=== PATIENT | female | born 1955 | race Caucasian/White ===

== ENCOUNTER 2017-06-14 13:43 | Outpatient (RCR) | payer OTHER ==
[2017-01-05 17:19] VITALS: Wt 97.5 kg
[2017-04-14 08:35] VITALS: BP 141/73
--- NOTE | 2017-04-14 08:51 | ONC Progress Note - NP.Halsey ---
Patient History Date of Service Apr 14, 2017 Reason For Visit/HPI Patient is seen today for for follow-up of her non-small cell lung cancer with features most compatible for metastatic adenocarcinoma of the lung with pulmonary origin. Patient continues to follow with Dr. Marita Iglesias in [place] and does her lab work here. Labs were reviewed with patient today. Patient reports that recent PET scan showed some lymphadenopathy in the mediastinum. She completed a biopsy which was reported to be inconclusive. She is following with Dr. Chapa at [facility] in the near future. She reports that she is on a trial study but has had no medication changes at this time. She continues on Xalkori and is tolerating it. She is having more pain in the left hip and is finding that she is having more difficulty with ambulation. Patient had similar situation with the right hip and completed radiation therapy. Disease was resolved. She did end up having a hip replacement on the right hip and is pain free at this time on the right hip. She denies any cough or congestion, shortness of breath. 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 CT was recommended by primary provider but denied by insurance so an X-ray was completed on 02-17-16 which was remarkable for a suspicious mass, Patient then had CT of the chest which showed a 2.3 x 2 x 1.6 cm mass with worrisome extensive right hilar and mediastinal adenopathy. 02-27-16: Bronchoscopy was positive for malignancy. Lymph node, subcarinal, malignant. Non-small Cell Carcinoma with fetures most compatible with metastatic adenocarcinoma of the lung/pulmonary origin. ALK immunohistochemistry: Alk IHC; Positive for ALK expression: Tumor cells show strong positive cytoplasmic staining for ALK and the specimen is classified as positive for ALK based on immunohistochemistry. Confirmation of the ALK status with alternate testing, using a different methodology is recommended (FISH analysis can be provided). 03/04/16: PET/CT Right lower lobe hypermetabolic module compatible with malignancy. Multiple hypermetabolic lymph nodes throughout the mediastinum, right hilum, and bilateral lowre neck cojmpatible with metastatic disease. 03/11/16: MRI Brain: enhancement measuring 5mm at the pontomedullary junction with mild magnetic susceptibility on the gradient sequence. 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 However a small metastatic lesion would be within the differential. Short term interval follow up in 4-6 weeks would be recommended. No other foci of metastatic disease within the remaining brain parenchyma. 03/24/16: Education regarding treatment with Xalkori completed, consent signed. 03/27/16: Xalkori started 04/06/16 MRI lumbar spine suspicious for solitary metastatic lesio to L2- patient denies any pain in the area. 04/13/16 Patient on treatment with Xalkori x 2 weeks and is seen for a 2 week follow up to review labs- which were WNL 04/20/16 Patient presents with SOB, CXR shows increased interstitial marking of the lungs particularly on the right when complared to CT form February 19, 2016. Differential is instertial pneumonia viral or atypical. Xalkori literature reviewed, URI symtoms and infection is increased and generally occur 2 months post initiation of treatment Recommendation is to discontinue if grade 3/4. AST-38 and ALT-73 are also elevated. Again Xalkori can increase the enzymes and drug will be discontinued if increased to > 3 times baseline or total bilirubin is > 1.5 times normal limit. Patient also has elevated WBC in her urine at 38 with symptoms of increased nocturia and dark colored urine. Patient placed on medrol dose elaina, levaquin x 10 days - Symptoms resolved. Patient reviewed CT from 05/25/[address] Iglesias. The previously noted spiculated mass in the anterior right lobe is markedly decreased in size now measuring 7 x 5 x 6 mm as opposed to 2.3 x 2 x 1.6 cm. There has also been resolution of the hilar mediastinal adenopathy with no pathologic appearing adenopathy. There was interval development of small pericardial infusion. PET/CT completed on 08/11/2016 had findings consistent with treatment response. Prior FDG avid bilateral supraclavicular, mediastinal, right hilar lymph nodes as well as FDG avid right lower lobe mass have all resolved. Enlarging sclerotic bone lesion within L2 vertebral body and left ischium are not FDG G avid and likely treated osseous metastatic disease. New tiny sclerotic lesion in the right superior acetabulum is not FDG avid. MRI on 09/09/2016 shows interval resolution of metastatic disease at L2 with findings likely representing previous radiation therapy to the upper lumbar spine. Patient has not received radiation treatment prior to this study. . Patient having pain in L2 area and right acetabulum. Patient started radiation therapy to the right acetabulum and has completed 20 fractions to a therapeutic dose of 4000 cGy. Pain was sightly improved. Patient is also completing L2-L3 spine radiation therapy with completion date of 09/27/2016. Patient will not receive Xgeva at this time Total hip arthroplasty completed in February 2017. Patient has improved ability for ambulation and no pain. CT chest abdomen and pelvis completed on 03/08/2017 shows stable 8 mm right lower lobe nodule, progression of bony metastatic disease in the pelvis, involving the bilateral iliac bones and left acetabulum. There are moderate degenerative changes in the right at L4 and 5 but these are similar to previous PET CT scan. No metastatic disease in the chest abdomen and pelvis. Nuclear med bone scan completed on 03/08/2017 shows vaguely increased activity of the right aspect of L4 which is increased from previous bone scan. There is new right total hip arthroplasty, patchy right acetabulum and mid femur is likely postoperative although residual metastatic disease is possible. There is a new area of uptake in the right acetabulum adjacent to the SI joint and patchy activity in the left iliac bone is increased compatible with bony metastatic disease. PET/CT completed in [place] shows lymphadenopathy in the mediastinum. Patient had biopsy of both pulmonary lymph nodes which were inconclusive. This is reported by patient. Patient is scheduled to follow with pulmonology at [facility] in the near future. Increasing left bone pain with more difficulty with ambulation. Recent CT scan and PET scan both conclusive for increased activity in the left hip with patchy sclerosis lysis disease, and patchy activity in the left iliac bone which was increased from previous. Patient should have an MRI for treatment planning with radiation. Medical History Family History: Bone cancer MOTHER, FH: breast cancer MOTHER, FH: melanoma FATHER Myasthenia gravis FATHER Psychosocial History Social History Patient is and has 1 adult daughter. 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 Bello clinic Prov:JOYCE MEDLEY STATISTICIAN-BC, ONC 03/24/16 Reported Medications Hydrochlorothiazide (HYDROCHLOROTHIAZIDE) 25 Mg Tablet, 1 TAB PO QDAY, TAB 08/18/16 Losartan Potassium (LOSARTAN POTASSIUM) 50 Mg Tablet, 50 MG PO QDAY for Blood Pressure 07/20/16 Sitagliptin Phos/Metformin Hcl (JANUMET XR 100-1,000 MG TABLET) 1 Each Tbmp.24hr , 1 EACH PO QDAY 07/20/16 Allergies: Uncoded Allergies: CONTRAST DYE (Allergy, Intermediate, VOMITING/FEVER , 12/24/16) Review of System/Physical Exam Review of Systems All Systems Reviewed/Normal: Yes, Except as Noted Musculoskeletal: Positive for Joint Pain (left hip which is increasing), Positive for Bone Pain (left hip pain which is increasing and causing more difficulty with ambulation. Patient feels that she is unable to exercise because of the increased pain) Physical Exam Vital Signs Temperature: 96.4 Pulse: 63 BP Systolic: 141 BP Diastolic: 73 Respiratory Rate: 14 O2 SAT: 92 O2 Delivery: Height (inches) 63.00 Weight lb: 215 Weight oz: Weight Kg (V[place]): 97.725153 Pain: 2 ECOG Score: 1 (Pain related causing fatigue and inability to be active) General: Stable, Well Developed, Well Nourished, Not In Acute Distress Neck: Supple Lungs: Clear to Auscultation Heart: Regular Rate, Regular Rhythm, No Gallops Abdomen: Soft and Nontender, No Hepatosplenomegaly, No Masses, Other Extremities: No Cyanosis (bowel sounds are active), No Clubbing, Other (noted limping with ambulation and difficulty getting out of the chair from sit to stand.) Psychiatric: Mood appears normal, Affect appears normal Skin: No Skin Rashes, No Bruising Diagnostic Studies Diagnostic Studies Laboratory Item Value Date Time White Blood Count 4.2 k/uL L 04/14/17 0830 Red Blood Count 4.18 M/uL 04/14/1730 Hemoglobin 12.0 g/dL 04/14/17829 Hematocrit 34.9 % 04/14/17829 Mean Corpuscular Volume 83.4 fL 04/14/17829 Mean Corpuscular Hemoglobin 28.8 pg 04/14/17829 Mean Corpuscular Hemoglobin Concent 34.5 g/dL 04/14/17829 Red Cell Distribution Width 14.9 % H 04/14/17 08 Platelet Count 358 K/uL 04/14/17829 Mean Platelet Volume 6.4 fL L 04/14/17 0830 Lymphocytes (%) (Auto) 15.5 % L 04/14/17829 Neutrophils # (Auto) 2.9 K/uL 04/14/17829 Whole Blood Glucose 147 mg/DL H 01/07/17 0754 Random Glucose 132 mg/dl H 04/14/1730 Alkaline Phosphatase 164 U/L H 04/14/1730 Albumin 3.1 g/dl L 04/14/17829 Assessment and Plan Assessment & Plan 1) Stage 4 adenocarcinoma of lung with possible brain metastasis is ALK IHC positive. Xalkori 250mg by mouth bid started on 03-27-16 and continues. Patient experienced nausea but controlled with compazine bid. Patient had CT chest, abdomen and pelvis on 05-25-[address] Iglesias in [facility] to review. Patient had significant improvement of previous disease. PET/ CT completed on 08/11/2016 is worrisome for increased osseous metastatic disease and findings of bilateral supraclavicular, mediastinal, right hilar lymph nodes consistent with treatment response. Patient completed radiation radiation therapy to the right acetabulum completed 20 fractions to a therapeutic dose of 4000 cGy completed L2-L3 spine on 09/27/2016 of 6 total doses. Patient continued to have pain and completed a right total hip arthroplasty. Pain is resolved. . Patient had repeat CT scan chest abdomen pelvis and bone scan done on 03/08/2017 showing increased metastatic bone disease in the left iliac bone showing patchy activity in the left iliac bone which was increased from previous studies. In review of nuclear med bone scan on 03/08/2017, patchy sclerosis and lysis of the left iliac bone anteriorly and laterally are noted. Patient has not had an MRI of the hip for further evaluation and could benefit from radiation therapy. She continues on Xalkori at this time. She is scheduled to follow with pulmonology in the near future. Recent biopsy of bilateral mediastinal lymph nodes found on PET CT were inconclusive.CBC and CMP reviewed today are essentially unremarkable Patient has not currently been on Xgeva for her bone metastasis due to completion of radiation therapy and recent hip surgery and possible need for radiation of the left hip for pain management. We will continue to monitor at this time. 2) Persistent nausea thought to be from Xalkori. Compazine provides relief. Patient will continue on Compazine twice a day. 3) Possible brain metastasis. MRI of the brain in March suggestive of disease with recommendation to repeat in 4-6 weeks. Repeat MRI remain stable from previous. It is not evident of brain metastasis at this time. Patient may benefit from repeat MRI in 4-6 months for further evaluation depending on disease status at that time. This is pending at this time- PET/CT scan be completed today and may show indication of her status. 4) Elevated cholesterol: Patient reports that she has discontinued her cholesterol medicine. Cholesterol labs reviewed today and remain relatively able. 5) Patient has a history of diabetes which is well managed through primary care. This remained stable, A1c was 6.1. She will continue to follow with primary care 6) Hypertension: Managed by primary care. We will continue to monitor 7.) Pain in the right acetabulum and L-spine: Patient is status post radiation therapy to these areas and has had significant improvement. Pain is improved post total hip arthroplasty. Patient has not been started on Xgeva 8.) Anxiety and depression: Will start patient on Cymbalta 30 mg daily 7 days and then increased to 60 mg daily with hopes that this will help with her anxiety, depression, and history of neuropathy. Patient continues on Cymbalta at this time and reports feeling good. 9.) Increasing pain in the left iliac crest. Disease identified when studies of CT and nuclear med bone scan from 03/08/2017 are reviewed. Both studies indicate patchy activity in the left iliac bone which is increased from prior studies and compatible with bone metastasis disease. Patient has not had an MRI for further evaluation and is interested in radiation therapy for pain management. She would like to do this before her pain increases and she is unable to ambulate which is what happened with the right hip. I will order an MRI and see patient in follow up for review and refer for radiation therapy if indicated. Plan: Continue Xalkori until discontinued by Dr. Iglesias MRI of the left hip, it left iliac crest for further evaluation of bone metastasis found on previous CT scan and increased pain causing difficulty with ambulation. Plan on referral for radiation therapy. Consider Xgeva for bone maintenance. Patient will continue on vitamin D 2000 units daily. Return in one month with CBC, CMP. And follow-up with myself. Pulmonology follow-up as scheduled. I personally spent a total of 35 minutes. Of that 35 minutes was counseling/ coordination of patient's care. See my note above for details. Copies to: MARITA IGLESIAS MD, NANCY J STATISTICIAN-BC, ONC Apr 14, 2017 08:51
[2017-05-06 09:29] LABS: PLATELET COUNT, AUTOMATED 397 K/uL (150-450)
[2017-05-13 09:08] LABS: PLATELET COUNT, AUTOMATED 375 K/uL (150-450)
[2017-05-13 09:18] VITALS: BP 128/77
[2017-05-20 08:56] LABS: PLATELET COUNT, AUTOMATED 346 K/uL (150-450)
[2017-05-20 09:14] VITALS: BP 131/70
--- NOTE | 2017-05-20 10:18 | ONC Progress Note - NP.Halsey ---
Patient History Date of Service May 20, 2017 Reason For Visit/HPI Patient is seen today for for follow-up of her non-small cell lung cancer with features most compatible for metastatic adenocarcinoma of the lung with pulmonary origin. Patient continues to follow with Dr. Marita Iglesias in [place] and does her lab work here. Labs were reviewed with patient today. Patient continues on radiation therapy for metastatic disease to the left hip. She reports that her pain has decreased with treatment and she has no skin reaction in the treatment field. She is able to ride a stationary bike for 45 minutes a day which previously she could not do. She continues on oral chemotherapy with Alecensa and denies any side effects. She no longer requires Compazine for nausea.. Problem List (1) Disease of bone and joint (2) Diabetes 1.5, managed as type 1 (3) Hypertension (4) Stage IV adenocarcinoma of lung Oncology History Patient presented with a one year history of a non specific cough. CT was recommended by primary provider but denied by insurance so an X-ray was completed on 02-17-16 which was remarkable for a suspicious mass, Patient then had CT of the chest which showed a 2.3 x 2 x 1.6 cm mass with worrisome extensive right hilar and mediastinal adenopathy. 02-27-16: Bronchoscopy was positive for malignancy. Lymph node, subcarinal, malignant. Non-small Cell Carcinoma with fetures most compatible with metastatic adenocarcinoma of the lung/pulmonary origin. ALK immunohistochemistry: Alk IHC; Positive for ALK expression: Tumor cells show strong positive cytoplasmic staining for ALK and the specimen is classified as positive for ALK based on immunohistochemistry. Confirmation of the ALK status with alternate testing, using a different methodology is recommended (FISH analysis can be provided). 03/04/16: PET/CT Right lower lobe hypermetabolic module compatible with malignancy. Multiple hypermetabolic lymph nodes throughout the mediastinum, right hilum, and bilateral lowre neck cojmpatible with metastatic disease. 03/11/16: MRI Brain: enhancement measuring 5mm at the pontomedullary junction with mild magnetic susceptibility on the gradient sequence. 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 However a small metastatic lesion would be within the differential. Short term interval follow up in 4-6 weeks would be recommended. No other foci of metastatic disease within the remaining brain parenchyma. 03/24/16: Education regarding treatment with Xalkori completed, consent signed. 03/27/16: Xalkori started 04/06/16 MRI lumbar spine suspicious for solitary metastatic lesio to L2- patient denies any pain in the area. 04/13/16 Patient on treatment with Xalkori x 2 weeks and is seen for a 2 week follow up to review labs- which were WNL 04/20/16 Patient presents with SOB, CXR shows increased interstitial marking of the lungs particularly on the right when complared to CT form February 19, 2016. Differential is instertial pneumonia viral or atypical. Xalkori literature reviewed, URI symtoms and infection is increased and generally occur 2 months post initiation of treatment Recommendation is to discontinue if grade 3/4. AST-38 and ALT-73 are also elevated. Again Xalkori can increase the enzymes and drug will be discontinued if increased to > 3 times baseline or total bilirubin is > 1.5 times normal limit. Patient also has elevated WBC in her urine at 38 with symptoms of increased nocturia and dark colored urine. Patient placed on medrol dose elaina, levaquin x 10 days - Symptoms resolved. Patient reviewed CT from 05/25/[address] Iglesias. The previously noted spiculated mass in the anterior right lobe is markedly decreased in size now measuring 7 x 5 x 6 mm as opposed to 2.3 x 2 x 1.6 cm. There has also been resolution of the hilar mediastinal adenopathy with no pathologic appearing adenopathy. There was interval development of small pericardial infusion. PET/CT completed on 08/11/2016 had findings consistent with treatment response. Prior FDG avid bilateral supraclavicular, mediastinal, right hilar lymph nodes as well as FDG avid right lower lobe mass have all resolved. Enlarging sclerotic bone lesion within L2 vertebral body and left ischium are not FDG G avid and likely treated osseous metastatic disease. New tiny sclerotic lesion in the right superior acetabulum is not FDG avid. MRI on 09/09/2016 shows interval resolution of metastatic disease at L2 with findings likely representing previous radiation therapy to the upper lumbar spine. Patient has not received radiation treatment prior to this study. . Patient having pain in L2 area and right acetabulum. Patient started radiation therapy to the right acetabulum and has completed 20 fractions to a therapeutic dose of 4000 cGy. Pain was sightly improved. Patient is also completing L2-L3 spine radiation therapy with completion date of 09/27/2016. Patient will not receive Xgeva at this time Total hip arthroplasty completed in February 2017. Patient has improved ability for ambulation and no pain. CT chest abdomen and pelvis completed on 03/08/2017 shows stable 8 mm right lower lobe nodule, progression of bony metastatic disease in the pelvis, involving the bilateral iliac bones and left acetabulum. There are moderate degenerative changes in the right at L4 and 5 but these are similar to previous PET CT scan. No metastatic disease in the chest abdomen and pelvis. Nuclear med bone scan completed on 03/08/2017 shows vaguely increased activity of the right aspect of L4 which is increased from previous bone scan. There is new right total hip arthroplasty, patchy right acetabulum and mid femur is likely postoperative although residual metastatic disease is possible. There is a new area of uptake in the right acetabulum adjacent to the SI joint and patchy activity in the left iliac bone is increased compatible with bony metastatic disease. PET/CT completed in [place] shows lymphadenopathy in the mediastinum. Patient had biopsy of both pulmonary lymph nodes which were inconclusive. This is reported by patient. Patient is scheduled to follow with pulmonology at [facility] in the near future. Increasing left bone pain with more difficulty with ambulation. Recent CT scan and PET scan both conclusive for increased activity in the left hip with patchy sclerosis lysis disease, and patchy activity in the left iliac bone which was increased from previous. Patient had a MRI for treatment planning with radiation. Patient has experienced decreased pain with radiation therapy to the left hip.05-20-17 Medical History Family History: Bone cancer MOTHER, FH: breast cancer MOTHER, FH: melanoma FATHER Myasthenia gravis FATHER Psychosocial History Social History Patient is and has 1 adult daughter. 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 Alcohol History She denies abuse Smoking History: No Smoking Status: Never Smoker Exposure to Second Hand Smoke?: Yes Medications and Allergies Active Scripts Duloxetine Hcl (CYMBALTA) 60 Mg Capsule., 60 MG PO QDAY for 30 Days, #30 CAP Prov:JOYCE MEDLEY BUNDLES HANGER-BC, ONC 05/05/17 Alectinib Hydrochloride (Alecensa) 150 Mg Capsule, 600 MG PO BID, #240 TAB Prov:JOYCE MEDLEY [employer]UNDLES HANGER-BC, ONC 05/05/17 Prochlorperazine Maleate (Compazine) 10 Mg Tablet, 10 MG PO 1-3XD for nasea, # 60 TAB 3 Refills Prov:IRVIN MEDLEYEARNESTINE Cantu BUNDLES HANGER-BC, ONC 09/10/16 Reported Medications Cholecalciferol (Vitamin D3) (VITAMIN D3) 1,000 Unit Tablet, 1000 UNIT PO DAILY , TAB 04/28/17 Hydrochlorothiazide (HYDROCHLOROTHIAZIDE) 25 Mg Tablet, 1 TAB PO QDAY, TAB 08/18/16 Losartan Potassium (LOSARTAN POTASSIUM) 50 Mg Tablet, 50 MG PO QDAY for Blood Pressure 07/20/16 Sitagliptin Phos/Metformin Hcl (JANUMET XR 100-1,000 MG TABLET) 1 Each Tbmp.24hr , 1 EACH PO QDAY 07/20/16 Allergies: Uncoded Allergies: CONTRAST DYE (Allergy, Intermediate, VOMITING/FEVER , 12/24/16) Review of System/Physical Exam Review of Systems All Systems Reviewed/Normal: Yes, Except as Noted Hematologic: Positive for Fatigue Musculoskeletal: Positive for Bone Pain (left hip which is reported to be improved) Physical Exam Vital Signs Temperature: 97.1 Pulse: 64 BP Systolic: 131 BP Diastolic: 70 Respiratory Rate: 16 O2 SAT: 92 O2 Delivery: Height (inches) 63.00 Weight lb: 215 Weight oz: Weight Kg (Villa): [phone] Pain: 3 ECOG Score: 1 General: Stable, Well Developed, Well Nourished, Not In Acute Distress HEENT: No Trauma, No Icterus, No Oral Thrush Neck: Supple Lungs: Clear to Auscultation Heart: Regular Rate, Regular Rhythm, No Gallops Abdomen: Soft and Nontender, No Hepatosplenomegaly, Other (bowel sounds are active) Extremities: No Cyanosis, No Clubbing, No Edema Lymphadenopathy: No Cervical Psychiatric: Mood appears normal, Affect appears normal Skin: No Skin Rashes, No Bruising Diagnostic Studies Diagnostic Studies Laboratory Laboratory Tests 05/20/17 08:46 Laboratory Tests 05/06/17 09:13: Peripheral Blood Smear No 05/20/17 08:46: White Blood Count 4.7, Red Blood Count 4.15, Hemoglobin 11.9, Hematocrit 35.0, Mean Corpuscular Volume 84.4, Mean Corpuscular Hemoglobin 28.6, Mean Corpuscular Hemoglobin Concent 33.9, Red Cell Distribution Width 16.1, Platelet Count 346, Mean Platelet Volume 6.9, Neutrophils (%) (Auto) 82.3, Lymphocytes (% ) (Auto) 9.8, Monocytes (%) (Auto) 5.8, Eosinophils (%) (Auto) 0.9, Basophils (% ) (Auto) 1.2, Nucleated RBC Relative Count (auto) 0.0, Neutrophils # (Auto) 3.9 , Lymphocytes # (Auto) 0.5, Monocytes # (Auto) 0.3, Eosinophils # (Auto) 0.0, Basophils # (Auto) 0.1, Nucleated RBC Absolute Count (auto) 0.00, Sodium Level 137, Potassium Level 3.2, Chloride Level 100, Carbon Dioxide Level 28, Blood Urea Nitrogen 12, Creatinine 0.90, Glomerular Filtration Rate Calc > 60.0, Random Glucose 171, Calcium Level 8.5, Total Bilirubin 1.0, Aspartate Amino Transf (AST/SGOT) 23, Alanine Aminotransferase (ALT/SGPT) 30, Alkaline Phosphatase 169, Total Creatine Kinase 27, Total Protein 6.0, Albumin 3.2 Assessment and Plan Assessment & Plan 1) Stage 4 adenocarcinoma of lung with possible brain metastasis is ALK IHC positive. Xalkori 250mg by mouth bid started on 03-27-16 and continues. Patient experienced nausea but controlled with compazine bid. Patient had CT chest, abdomen and pelvis on 05-25-[address] Iglesias in [facility] to review. Patient had significant improvement of previous disease. PET/ CT completed on 08/11/2016 is worrisome for increased osseous metastatic disease and findings of bilateral supraclavicular, mediastinal, right hilar lymph nodes consistent with treatment response. Patient completed radiation radiation therapy to the right acetabulum completed 20 fractions to a therapeutic dose of 4000 cGy completed L2-L3 spine on 09/27/2016 of 6 total doses. Patient continued to have pain and completed a right total hip arthroplasty. Pain is resolved. . Patient had repeat CT scan chest abdomen pelvis and bone scan done on 03/08/2017 showing increased metastatic bone disease in the left iliac bone showing patchy activity in the left iliac bone which was increased from previous studies. In review of nuclear med bone scan on 03/08/2017, patchy sclerosis and lysis of the left iliac bone anteriorly and laterally are noted. Patient is currently receiving radiation therapy to the left hip with improvement of pain and mobility. Xalkori has been discontinued and patient is currently on Alecensa with good toleration. Patient will follow with Dr. Iglesias in June. I plan on repeating labs weekly for 2 more weeks and then patient will have monthly labs. See her in June for follow-up. Patient has not currently been on Xgeva for her bone metastasis due to completion of radiation therapy and recent hip surgery and possible need for radiation of the left hip for pain management. We will continue to monitor at this time. 2) Increasing pain in the left iliac crest. Disease identified when studies of CT and nuclear med bone scan from 03/08/2017 are reviewed. Both studies indicate patchy activity in the left iliac bone which is increased from prior studies and compatible with bone metastasis disease. Patient has not had an MRI for further evaluation and is interested in radiation therapy for pain management. She would like to do this before her pain increases and she is unable to ambulate which is what happened with the right hip. MRI completed for treatment planning with radiation therapy. Patient started radiation therapy to the left hip on 05/05/2017. 3) Possible brain metastasis. MRI of the brain in March suggestive of disease with recommendation to repeat in 4-6 weeks. Repeat MRI remain stable from previous. It is not evident of brain metastasis at this time. Patient may benefit from repeat MRI in 4-6 months for further evaluation depending on disease status at that time. This is pending at this time- PET/CT scan be completed today and may show indication of her status. 4) Elevated cholesterol: Patient reports that she has discontinued her cholesterol medicine. Cholesterol labs reviewed today and remain relatively able. 5) Patient has a history of diabetes which is well managed through primary care. This remained stable, A1c was 6.1. She will continue to follow with primary care 6) Hypertension: Managed by primary care. We will continue to monitor. Patient is currently on hydrochlorothiazide and has a decreased potassium level. We will continue to monitor and start potassium if necessary. 7.) Pain in the right acetabulum and L-spine: Patient is status post radiation therapy to these areas and has had significant improvement. Pain is improved post total hip arthroplasty. Patient has not been started on Xgeva 8.) Anxiety and depression: Will start patient on Cymbalta 30 mg daily 7 days and then increased to 60 mg daily with hopes that this will help with her anxiety, depression, and history of neuropathy. Patient continues on Cymbalta at this time and reports feeling good. Plan: Continue on Alecensa daily Continue weekly labs 2 more weeks[address] Follow with Dr. Iglesias in June as scheduled. Follow with myself with labs prior in June. Complete radiation therapy to the left hip. Consider Xgeva for bone maintenance. Patient will continue on vitamin D 2000 units daily. I personally spent a total of 25 minutes [id number] with patient reviewing labs, counseling, and coordination of care. See my note above for details. Copies to: MARITA IGLESIAS MD, NANCY J BUNDLES HANGER-BC, ONC May 20, 2017 10:18
[2017-05-27 08:52] LABS: PLATELET COUNT, AUTOMATED 281 K/uL (150-450)
[2017-05-27 09:36] VITALS: BP 129/67
[2017-06-03 09:07] VITALS: BP 147/74
[2017-06-03 09:12] LABS: PLATELET COUNT, AUTOMATED 352 K/uL (150-450)
[~2017-06-14 13:43] MED LIST: ALEC150C PO; ASPI-757 PO; ASPI81TA94 PO; ATR80PT PO; CELE-1 PO; CHOL10005 PO; CRIZ250C PO; DIA5 PO; DULO30CA35 PO; DULO60CA56 PO; EZET10TA41 PO; GABA-547 PO; HYDR-2966 PO; HYDR-389 PO; HYDR12.561 PO; LEVO750T44 PO; LOSA-51 PO; LOSA50TA72 PO; METF-420 PO; METH4TAB66 PO; OXYC-823 PO; OXYC5TAB38 PO; PRED-1 PO; PROC10TA4 PO; RIV10 PO; SITA1TBM7 PO
[2017-06-14 13:49] VITALS: BP 127/81
[2017-06-14 13:57] LABS: PLATELET COUNT, AUTOMATED 402 K/uL (150-450)
== END 2017-07-12 ==
LOC: SPU 13:43
PROVIDERS: ATTEND Internal Medicine Medical Oncology
DX: C34.91 Malignant neoplasm of unspecified part of right bronchus or lung (principal); C79.51 Secondary malignant neoplasm of bone; Z92.3 Personal history of irradiation; R11.0 Nausea; E78.00 Pure hypercholesterolemia, unspecified; I10 Essential (primary) hypertension; M54.89 Other dorsalgia; F32.9 Major depressive disorder, single episode, unspecified; E10.9 Type 1 diabetes mellitus without complications; Z96.641 Presence of right artificial hip joint; Z79.82 Long term (current) use of aspirin; Z79.899 Other long term (current) drug therapy; R53.83 Other fatigue
CPT/HCPCS: 36415; 77412; 81001; 82040; 82247; 82310; 82374; 82435; 82550; 82565; 82947; 83615; 84075; 84132; 84155; 84295; 84450; 84460; 84520; 85025; 99212

== ENCOUNTER 2017-06-14 13:44 | Outpatient (RCR) | payer OTHER ==
[2017-01-05 17:19] VITALS: BMI 38.1
[2017-04-14 08:47] LABS: PLATELET COUNT, AUTOMATED 358 K/uL (150-450)
--- NOTE | 2017-04-30 06:25 | TOBIN CONSULT ---
EVENT DATE: April 26, 2017 REASON FOR REEVALUATION Patient is referred for radiation therapy for symptomatic bone pain related to lung cancer progression in the left acetabulum and left hemipelvis, significant pain with standing. STAGE IV ONCOLOGY HISTORY 1. Patient diagnosed with ALK positive adenocarcinoma of the lung January,, presenting with bilateral supraclavicular fossa lymphadenopathy, mediastinal and right hilar lymphadenopathy. Spiculated right lower lobe mass measuring 2.2 x 1.9 cm. 2. Patient started on Xalkori with significant therapeutic response. 3. Radiographic evidence of tumor progression with bony sclerosis at L2. 4. Sep, 2016, patient treated with focal radiation therapy. Sclerosis also noted at that time in the right acetabulum with concurrent radiotherapy delivering 4080 Centigrade in 21 fractions concurrently with both marie. 5, Recent identification of recurrent PET CT avid lymphadenopathy in the chest with radiographic evidence of tumor progression in the left hemipelvis confirmed by MRI scan as well as MRI scan. PET CT scan was requested by Dr. Skaggs and obtained at [place] on March 18, 2017. That study is notable for new lymphadenopathy, left posterior cervical chain, supraclavicular space on the left and right side. Right pulmonary nodule, slight increase in size. Metabolic activity also noted in the right hilar and paraesophageal lymph nodes. Finally, tumor metabolic activity was seen in the left iliac crest, which was new compared to prior studies in 2016 and 2017. 6. MRI confirmation of fairly extensive tumor remodeling of the left acetabulum and left iliac bone. Left hip MRI scan was obtained on April 20, 2017. There is fluid collection measuring 8.0 x 2.4 x 2.4 cm along the right total hip area related to prior WENDY surgery. Final pathology was benign for any radiation changes or cancer in the right hip. That hip developed avascular necrosis. The MRI scan revealed metastatic disease involving the right superior and inferior pubic ramus bone along that left acetabulum. Tumor was also extending into the left iliac bone as well as the inferior pubic ramus on the left and the anterior and posterior acetabular columns. Moderate edema in the adjacent iliac is gluteal musculature. Mixed sclerotic reaction. INTERVAL HISTORY Patient is well known to me. She is a pleasant 61-year-old female who was diagnosed last year with non-small cell lung carcinoma, which was ALK positive. Tumor has been reasonably well controlled with Xalkori with initial CR. She had isolated bone progression, which was treated successfully with radiotherapy last fall to L2 and the right supra-acetabular area. Recent radiographic studies show improvement at L2 with no metabolic activity on recent PET CT scan at that location. Patient developed pain in the left hemipelvis with standing in the last two months. She states that started after her right total hip replacement for unrelated avascular necrosis. She recovered nicely from the surgery with no complications. Pain is not present with sitting, but is certainly present immediately with standing and walking. She is noticing pain with sleeping. She tries not to take any pain medications when possible. She does have oxycodone at home if severe pain. Pain can range from 2 to a 7 on a scale of 1-10. Mild weight loss, stable respiratory status. Denies any headaches. Denies any back pain. No motor weakness. No radicular component of pain. The patient has seen Dr. Marita Skaggs since her last appointment here as well as Dr. Funez at the [facility]. She was referred for radiotherapy considerations at this time. There will be a change in her systemic therapy as well within the next 30-90 days. Outside medical oncology records have been requested. Patient was seen with her for film review this morning. Overall, patient's clinical functional status has remained fairly high. She has not experienced any nausea at this time. She does inform me that she may have to travel to [place] within a few days or weeks due to an illness in a relative. CURRENT MEDICATIONS 1. Xalkori (crizotinib) 250 mg daily. 2. Janumet 100/1000 mg daily. 3. Losartan 50 mg daily. 4. Hydrochlorothiazide 25 mg daily. 5. Compazine 10 mg daily. 6. Vitamin D. PAST MEDICAL HISTORY 1. Non-small cell lung carcinoma with lymph node and bone metastasis. 2. Type 2 diabetes. 3. Hypertension. 4. Obesity. 5. Pulmonary hypertension. PAST SURGICAL HISTORY Right hip replacement January 04, 2017. ALLERGIES None. 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 She is . Nonsmoker. Denies alcohol. REVIEW OF SYSTEMS Comprehensive review of systems negative with the exception of bone pain with standing in left hemipelvis. Weight loss of approximately 40 pounds the last 6 months, which she accounts to improved diet. Oxygen at 1 liter at night. Intermittent cough. PHYSICAL EXAMINATION GENERAL: Pleasant 61-year-old female with [id number] build. Pleasant 61- year-old female in no acute distress. VITALS: BP 123/65, pulse 61, O2 sat 92% on room air, respirations 16. HEENT: No regional lymphadenopathy detected with exception of some fullness in the supraclavicular fossa bilaterally. No axillary lymphadenopathy. LUNGS: Clear to auscultation bilaterally. HEART: Regular, no audible murmur. ABDOMEN: Soft, no gross organomegaly. EXTREMITIES: Motor strength was equal in the upper and lower extremities bilaterally. IMPRESSION This is very nice 61-year-old lady who is approximately 14 months remote from diagnosis of stage IV ALK-positive adenocarcinoma of the lung. Patient presented with mediastinal and bone metastasis essentially. Previously responded well to focal radiotherapy to the right acetabulum and L2. I did not treat the right femur, and I would say the right side avascular necrosis was incidental. No cancer on the final pathology at that location. The patient presents at this time with recent evidence of progression on PET CT scan with recurrent activity in the mediastinal supraclavicular fossa lymph nodes. There also is progression in the left hemipelvis confirmed by PET CT as well as an MRI scan. The latter was obtained at [facility] and reviewed with the patient and her today on the screen. There is significant osteolytic involvement of the left acetabulum as well as the inferior pubic ramus and the left iliac wing. Patient is symptomatic with immediate pain with standing and also pain at night, which is characteristic of malignancy at this location. My recommendation would be to proceed immediately with focal multifield radiotherapy to this location. I plan to deliver 40 bautista and 20 fractions with a 3 or 4 field treatment technique. Previous marie will be reviewed prior to radiation planning. Due to her size, she may develop skin reaction in the groin , and we will attempt to avoid this by listing this as a potential avoidant structure, and also using high energy 18 MV photons. Targeting simulation has been initiated, and treatments will start within approximately 7 days. All questions were answered to the patient's satisfaction. I would estimate 80% chance of partial relief and 60% chance of complete bone pain relief with treatment program. The goal is to prevent pathologic fracture down the road, particularly since she has osteolytic process going through the acetabulum. Signed consent was obtained for treatment, recognizing potential acute late side effects, therapeutic alternatives, including no therapy. Consultation took approximately 90 minutes today. HANK
[2017-05-05 08:52] VITALS: BP 126/69
--- NOTE | 2017-05-05 12:38 | ONC Progress Note - NP.Halsey ---
Patient History Date of Service May 05, 2017 Reason For Visit/HPI Patient is seen in the clinic today for education prior to starting oral therapy with Alecensa. She has not discontinued the Xalkori and was instructed to stop it now. She recently followed with Dr. Chapa at [facility] and Dr. Marita Iglesias to discuss her plan of care for her non-small cell lung cancer with ALK translocation originally diagnosed on 02-27-16 with sub carinal lymph node biopsy. ALD status was confirmed with FISH and ICH. She has completed approximately one year of Xalkori and has developed disease progression. She recently presented with increased pain in the left hip and had an MRI to confirm disease progression in the area. She started radiation therapy to the left hip yesterday and will complete on 05-30-17 if she is on schedule. She is following with Dr. Christiano Neal, radiation oncologist. Patient reports that her pain is slightly improved today. She continues to take no oral pain medication. She occasionally will take a Tylenol. 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 CT was recommended by primary provider but denied by insurance so an X-ray was completed on 02-17-16 which was remarkable for a suspicious mass, Patient then had CT of the chest which showed a 2.3 x 2 x 1.6 cm mass with worrisome extensive right hilar and mediastinal adenopathy. 02-27-16: Bronchoscopy was positive for malignancy. Lymph node, subcarinal, malignant. Non-small Cell Carcinoma with fetures most compatible with metastatic adenocarcinoma of the lung/pulmonary origin. ALK immunohistochemistry: Alk IHC; Positive for ALK expression: Tumor cells show strong positive cytoplasmic staining for ALK and the specimen is classified as positive for ALK based on immunohistochemistry. Confirmation of the ALK status with alternate testing, using a different methodology is recommended (FISH analysis can be provided). 03/04/16: PET/CT Right lower lobe hypermetabolic module compatible with malignancy. Multiple hypermetabolic lymph nodes throughout the mediastinum, right hilum, and bilateral lowre neck cojmpatible with metastatic disease. 03/11/16: MRI Brain: enhancement measuring 5mm at the pontomedullary junction with mild magnetic susceptibility on the gradient sequence. 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 However a small metastatic lesion would be within the differential. Short term interval follow up in 4-6 weeks would be recommended. No other foci of metastatic disease within the remaining brain parenchyma. 03/24/16: Education regarding treatment with Xalkori completed, consent signed. 03/27/16: Xalkori started 04/06/16 MRI lumbar spine suspicious for solitary metastatic lesio to L2- patient denies any pain in the area. 04/13/16 Patient on treatment with Xalkori x 2 weeks and is seen for a 2 week follow up to review labs- which were WNL 04/20/16 Patient presents with SOB, CXR shows increased interstitial marking of the lungs particularly on the right when complared to CT form February 19, 2016. Differential is instertial pneumonia viral or atypical. Xalkori literature reviewed, URI symtoms and infection is increased and generally occur 2 months post initiation of treatment Recommendation is to discontinue if grade 3/4. AST-38 and ALT-73 are also elevated. Again Xalkori can increase the enzymes and drug will be discontinued if increased to > 3 times baseline or total bilirubin is > 1.5 times normal limit. Patient also has elevated WBC in her urine at 38 with symptoms of increased nocturia and dark colored urine. Patient placed on medrol dose elaina, levaquin x 10 days - Symptoms resolved. Patient reviewed CT from 05/25/[address] Iglesias. The previously noted spiculated mass in the anterior right lobe is markedly decreased in size now measuring 7 x 5 x 6 mm as opposed to 2.3 x 2 x 1.6 cm. There has also been resolution of the hilar mediastinal adenopathy with no pathologic appearing adenopathy. There was interval development of small pericardial infusion. PET/CT completed on 08/11/2016 had findings consistent with treatment response. Prior FDG avid bilateral supraclavicular, mediastinal, right hilar lymph nodes as well as FDG avid right lower lobe mass have all resolved. Enlarging sclerotic bone lesion within L2 vertebral body and left ischium are not FDG G avid and likely treated osseous metastatic disease. New tiny sclerotic lesion in the right superior acetabulum is not FDG avid. MRI on 09/09/2016 shows interval resolution of metastatic disease at L2 with findings likely representing previous radiation therapy to the upper lumbar spine. Patient has not received radiation treatment prior to this study. . Patient having pain in L2 area and right acetabulum. Patient started radiation therapy to the right acetabulum and has completed 20 fractions to a therapeutic dose of 4000 cGy. Pain was sightly improved. Patient is also completing L2-L3 spine radiation therapy with completion date of 09/27/2016. Patient will not receive Xgeva at this time Total hip arthroplasty completed in February 2017. Patient has improved ability for ambulation and no pain. CT chest abdomen and pelvis completed on 03/08/2017 shows stable 8 mm right lower lobe nodule, progression of bony metastatic disease in the pelvis, involving the bilateral iliac bones and left acetabulum. There are moderate degenerative changes in the right at L4 and 5 but these are similar to previous PET CT scan. No metastatic disease in the chest abdomen and pelvis. Nuclear med bone scan completed on 03/08/2017 shows vaguely increased activity of the right aspect of L4 which is increased from previous bone scan. There is new right total hip arthroplasty, patchy right acetabulum and mid femur is likely postoperative although residual metastatic disease is possible. There is a new area of uptake in the right acetabulum adjacent to the SI joint and patchy activity in the left iliac bone is increased compatible with bony metastatic disease. PET/CT completed in [place] shows lymphadenopathy in the mediastinum. Patient had biopsy of both pulmonary lymph nodes which were inconclusive. This is reported by patient. Patient is scheduled to follow with pulmonology at [facility] in the near future. Increasing left bone pain with more difficulty with ambulation. Recent CT scan and PET scan both conclusive for increased activity in the left hip with patchy sclerosis lysis disease, and patchy activity in the left iliac bone which was increased from previous. Patient should have an MRI for treatment planning with radiation. External beam radiation therapy to the left hip started on 05/04/2017 and completed on 05/30/2017. In addition patient will start new medication with Alecensa CBC, CMP and creatinine kinase will be monitored weekly 4 and then depending on results will be monitored monthly if appropriate. 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 Alcohol History She denies abuse Recreational Drug History She denies use Smoking History: No Smoking Status: Never Smoker Exposure to Second Hand Smoke?: Yes Medications and Allergies Active Scripts Duloxetine Hcl (CYMBALTA) 60 Mg Capsule.dr, 60 MG PO QDAY for 30 Days, #30 CAP Prov:JOY[facility]-, ONC 05/05/17 Alectinib Hydrochloride (Alecensa) 150 Mg Capsule, 600 MG PO BID, #240 TAB Prov:[facility], ONC 05/05/17 Prochlorperazine Maleate (Compazine) 10 Mg Tablet, 10 MG PO 1-3XD for nasea, # 60 TAB 3 Refills Prov:[facility], ONC 09/10/16 Reported Medications Cholecalciferol (Vitamin D3) (VITAMIN D3) 1,000 Unit Tablet, 1000 UNIT PO DAILY , TAB 04/28/17 Hydrochlorothiazide (HYDROCHLOROTHIAZIDE) 25 Mg Tablet, 1 TAB PO QDAY, TAB 08/18/16 Losartan Potassium (LOSARTAN POTASSIUM) 50 Mg Tablet, 50 MG PO QDAY for Blood Pressure 07/20/16 Sitagliptin Phos/Metformin Hcl (JANUMET XR 100-1,000 MG TABLET) 1 Each Tbmp.24hr , 1 EACH PO QDAY 07/20/16 Discontinued Scripts Crizotinib (XALKORI) 250 Mg Capsule, 250 MG PO BID, #60 CAPSULE Medication was ordered through Dr. Bello clinic Prov:[facility] ONC 03/24/16 Aspirin (ASPIRIN) 325 Mg Tablet, 325 MG PO QDAY, #30 TAB Prov:ALFREDO COTTON MD 01/07/17 Allergies: Uncoded Allergies: CONTRAST DYE (Allergy, Intermediate, VOMITING/FEVER , 12/24/16) Review of System/Physical Exam Review of Systems All Systems Reviewed/Normal: Yes, Except as Noted Respiratory: Positive for Shortness of Breath (with exertion occasionally) Hematologic: Positive for Fatigue, Positive for Weakness Musculoskeletal: Positive for Joint Pain, Positive for Bone Pain (left hip, see above) Psychiatric: Depression (patient reports that she is sad regarding the diagnosis), Other (her spouse is with her today) Physical Exam Vital Signs Temperature: 97.2 Pulse: 58 BP Systolic: 126 BP Diastolic: 69 Respiratory Rate: 16 O2 SAT: 93 O2 Delivery: Height (inches) 63.00 Weight lb: 215 Weight oz: Weight Kg ([place]): Pain: 3 ECOG Score: 1 (Left hip pain decreases her ability to ambulate) General: Stable, Well Developed, Well Nourished, Not In Acute Distress HEENT: No Trauma Extremities: No Cyanosis, No Edema Psychiatric: Mood appears normal, Affect appears normal Skin: No Skin Rashes, No Bruising, No Purpura Chemo Education Chemotherapy Education: Patient is seen today for education regarding chemotherapy Alecenas for her age for adenocarcinoma of the lung, ALK positive The treatment schedule and associated appointments were discussed and reviewed. A print out will be given to the patient. The intent for treatment is palliative. Consent for treatment was completed prior to receiving treatment. Patient should receive medication within the next few days and will let me know when she starts it. She will be monitored weekly with labs 4 weeks and blood pressure monitoring. Mechanism of action and associated side effects of Alecensa was discussed. Possible side effects such as increased blood pressure, increased blood sugar, increased exposure to sun causing sunburn was reviewed with patient. Signs and symptoms of side effects such as an allergic reaction, liver problems with a dark urine, difficulty breathing and shortness of breath, change in urine passing or blood in the urine, confusion which may be a sign of high blood sugar and testing her blood sugar routinely was reviewed and discussed in full detail. In addition patient could experience electrolyte problems which may cause mood changes muscle pain or weakness, slow heart rate or dizziness. If patient experienced any changes related to the above she verbalized understanding that she would call the clinic or go to the emergency room. She knows that she contact me through the hospital at any time. Labs will be monitored closely for the 1st 4 weeks and depending on results will be monitored less frequently. Previous side effects such as diarrhea and constipation, nausea and vomiting fatigue, were reviewed again. Patient has a education book with management of the side effects in written form. Safety factors related to bodily fluids were reviewed again today. This information is also in written form in her education book. Patient will swallow the tablet whole and will not crush or chew the tablet. She will keep the drug in a safe, dry place. She verbalized understanding that if she missed dose that she will not doubled the dose but will take it at the next scheduled time. If she experienced emesis she will not repeat the dose but will take it at the next scheduled time. A written handout was given to her regarding all side effects. Patient verbalized understanding and a consent was signed. Diagnostic Studies Diagnostic Studies Laboratory CBC, CMP and creatinine kinase will be drawn prior to patient starting new oral medication Laboratory Tests 04/14/17 08:30 Laboratory Tests 04/14/17 08:30: White Blood Count 4.2, Red Blood Count 4.18, Hemoglobin 12.0, Hematocrit 34.9, Mean Corpuscular Volume 83.4, Mean Corpuscular Hemoglobin 28.8, Mean Corpuscular Hemoglobin Concent 34.5, Red Cell Distribution Width 14.9, Platelet Count 358, Mean Platelet Volume 6.4, Neutrophils (%) (Auto) 69.7, Lymphocytes (% ) (Auto) 15.5, Monocytes (%) (Auto) 10.1, Eosinophils (%) (Auto) 3.2, Basophils (%) (Auto) 1.5, Nucleated RBC Relative Count (auto) 0.0, Neutrophils # (Auto) 2.9, Lymphocytes # (Auto) 0.7, Monocytes # (Auto) 0.4, Eosinophils # (Auto) 0.1 , Basophils # (Auto) 0.1, Nucleated RBC Absolute Count (auto) 0.00, Sodium Level 138, Potassium Level 3.9, Chloride Level 104, Carbon Dioxide Level 26, Blood Urea Nitrogen 13, Creatinine 0.90, Glomerular Filtration Rate Calc > 60.0 , Random Glucose 132, Calcium Level 8.8, Total Bilirubin 0.5, Aspartate Amino Transf (AST/SGOT) 18, Alanine Aminotransferase (ALT/SGPT) 34, Alkaline Phosphatase 164, Total Protein 5.8, Albumin 3.1 Assessment and Plan Assessment & Plan 1) Stage 4 adenocarcinoma of lung with possible brain metastasis is ALK IHC positive. Xalkori 250mg by mouth bid started on 03-27-16 and continues. Patient experienced nausea but controlled with compazine bid. Patient had CT chest, abdomen and pelvis on 05-25-[address] Iglesias in [facility] to review. Patient had significant improvement of previous disease. PET/ CT completed on 08/11/2016 is worrisome for increased osseous metastatic disease and findings of bilateral supraclavicular, mediastinal, right hilar lymph nodes consistent with treatment response. Patient completed radiation radiation therapy to the right acetabulum completed 20 fractions to a therapeutic dose of 4000 cGy completed L2-L3 spine on 09/27/2016 of 6 total doses. Patient continued to have pain and completed a right total hip arthroplasty. Pain is resolved. . Patient had repeat CT scan chest abdomen pelvis and bone scan done on 03/08/2017 showing increased metastatic bone disease in the left iliac bone showing patchy activity in the left iliac bone which was increased from previous studies. In review of nuclear med bone scan on 03/08/2017, patchy sclerosis and lysis of the left iliac bone anteriorly and laterally are noted. Patient has not had an MRI of the hip for further evaluation and could benefit from radiation therapy. Radiation therapy to the left hip was started on 05/04/2017 and will continue to 05/30/2017. Patient will discontinue Xalkori at this time. At occasion completed today for Alecensa. I will follow her with a weekly CBC, CMP and creatinine kinase 4 weeks. Patient has not currently been on Xgeva for her bone metastasis due to completion of radiation therapy and recent hip surgery and possible need for radiation of the left hip for pain management. We will continue to monitor at this time. 2) Persistent nausea thought to be from Xalkori. Compazine provides relief. Patient hopefully will not have nausea with Alecens, but has Compazine if needed 3) Possible brain metastasis. MRI of the brain in March suggestive of disease with recommendation to repeat in 4-6 weeks. Repeat MRI remain stable from previous. It is not evident of brain metastasis at this time. Patient may benefit from repeat MRI in 4-6 months for further evaluation depending on disease status at that time. PET/CT scan showed no indication. We will continue to monitor signs and symptoms and repeat an MRI if indicated 4) Elevated cholesterol: Patient reports that she has discontinued her cholesterol medicine. Managed by primary 5) Patient has a history of diabetes which is well managed through primary care. This remained stable, A1c was 6.1. She will continue to follow with primary care 6) Hypertension: Managed by primary care. We will continue to monitor- patient may increase elevated blood pressure with new oral chemotherapy we will monitor weekly 4 and then with each lab draw. 7.) Pain in the right acetabulum and L-spine: Patient is status post radiation therapy to these areas and has had significant improvement. Pain is improved post total hip arthroplasty. Patient has not been started on Xgeva 8.) Anxiety and depression: Will start patient on Cymbalta 30 mg daily 7 days and then increased to 60 mg daily with hopes that this will help with her anxiety, depression, and history of neuropathy. Patient continues on Cymbalta at this time and reports feeling good. 9.) Increasing pain in the left iliac crest. Disease identified when studies of CT and nuclear med bone scan from 03/08/2017 are reviewed. Both studies indicate patchy activity in the left iliac bone which is increased from prior studies and compatible with bone metastasis disease. MRI completed indicating disease progression. Patient started radiation therapy to the left hip on 2016 and will continue to 05/30/2017 if she stays on schedule. Xgeva may be discussed post completion of treatment. Plan: Discontinue Xalkori today, singh to start on Alecensa within the next few days. Weekly CBC, CMP and creatinine kinase 4 after starting new medication. She will follow with Dr. Iglesias approximately 1 month from starting new medication. She reports pulmonary oncology recommended a PET CT scan in 2 months. I did discuss this with her that with current radiation therapy she would have false positives in the left hip area with a PET/CT. CT scan chest abdomen and pelvis in 2 months for disease response with new oral medication would be my recommendation and a PET CT scan 12 weeks from completion of radiation therapy. She will discuss this with Dr. Iglesias. Possibly starting Xgeva for bone metastasis post completion of radiation therapy. She will discuss this with Dr. Iglesias. I personally spent a total of [] minutes. Of that [] minutes was counseling/ coordination of patient's care. See my note above for details. Copies to: CHRISTIANO VALDES MD; MARITA IGLESIAS MD, NANCY J [employer]TE[employer] MANAGER-BC, ONC May 05, 2017 12:38
== END 2017-07-21 ==
LOC: RAON 13:44
PROVIDERS: ATTEND Radiology Radiation Oncology
DX: Z51.0 Encounter for antineoplastic radiation therapy (principal); C34.90 Malignant neoplasm of unspecified part of unspecified bronchus or lung; C79.51 Secondary malignant neoplasm of bone
CPT/HCPCS: 77280; 77290; 77295; 77300; 77334; 77336; 77412; 77417; 82040; 82247; 82310; 82374; 82435; 82565; 82947; 84075; 84132; 84155; 84295; 84450; 84460; 84520; 85025; 99212

== ENCOUNTER 2017-07-26 13:49 | Outpatient (RCR) | payer OTHER ==
[2017-01-05 17:19] VITALS: BMI 38.1
[2017-05-05 08:52] VITALS: BP 126/69
[2017-07-26] MEDS ORDERED: POTA8CAP9 PO (16:37)
== END 2017-07-28 14:48 | disposition home or self-care (01) ==
LOC: RAON 13:49
PROVIDERS: ATTEND Radiology Radiation Oncology
DX: C34.90 Malignant neoplasm of unspecified part of unspecified bronchus or lung (principal); C79.51 Secondary malignant neoplasm of bone
CPT/HCPCS: 99212

== ENCOUNTER 2017-08-03 11:14 | Outpatient (RCR) | payer OTHER ==
[2017-01-05 17:19] VITALS: BMI 38.1
[2017-07-19 08:46] LABS: PLATELET COUNT, AUTOMATED 337 K/uL (150-450)
--- NOTE | 2017-07-19 11:51 | RADIOLOGY IMAGING REPORT ---
FACILITY: [facility] PATIENT NAME: Zee Stoddard : 1955 MR: [id number] V: [id number] EXAM DATE: ORDERING PHYSICIAN: DIANDRA MAHER TECHNOLOGIST: Location: [facility] Patient: Zee Stoddard : 1955 Visit/Account:[id number] Date of Sevice: 07/19/2017 CHEST/AB/PELV CT W/CONTRAST HISTORY: One cancer ADDITIONAL HISTORY: None. TECHNIQUE: Following administration of IV contrast axial images acquired through the chest abdomen a nd pelvis during the portal venous phase. Coronal and sagittal reformatting was also performed. Dose Lowering Technique One of the following dose optimization techniques was utilized in the performance of this exam: Autom ated exposure control; adjustment of the mA and/or kV according to the patient's size; or use of an i terative reconstruction technique. Specific details can be referenced in the facility's radiology C T exam operational policy. CONTRAST: 75 mL Isovue-370 COMPARISON: March 08, 2017 FINDINGS: CHEST: Lungs/Pleura: The previously noted 8 mm nodule in the right lower lobe is no longer seen. There is a small amount linear stranding now in this location. the patchy subpleural nodularity in the right lateral lung base appears less prominent and is seen o n image 81. there are no new pulmonary nodules or areas of consolidation. No evidence of pleural effusions. Mediastinum/lymph nodes: Negative. Heart/vessels: Small pericardial effusion Bones/soft tissues: There is a sclerotic density in the left side of the body of the sternum which w as not present previously. There is a small sclerotic focus posterior aspect of the right fifth rib appears relatively unchanged ABDOMEN AND PELVIS: Hepatobiliary: Negative. Spleen: Negative. Pancreas: Negative. Adrenals: Negative. Kidneys ureters and bladder : Negative. Genitalia: Several small calcified occasions within the uterus GI: Mild colonic diverticulosis although no CT evidence of acute diverticulitis Vessels/spaces/nodes: Negative. Bones/soft tissues: There is a right hip arthroplasty. there are sclerotic densities in the anterior sacrum at the SI joints similar to the prior study. There is increasing sclerosis mixed with mottled lucencies throughout the left iliac bone. There is now pathologic fracture through the mid to inferior left iliac bone extending to the roof of the sharyn tabulum on the left . There is also increased sclerosis in the left ischium. . Subtle patchy sclerosis in the right iliac bone appears similar to the prior study. Subtle sclero sis right side of the L2 vertebral body is again seen. There are moderate spondylotic changes throug hout the lumbar spine.. Additional findings: None pertinent. IMPRESSION: The previously noted 8 mm nodule in the right lower lobe is no longer seen. There is now a small wally unt of linear stranding in this location. The patchy subpleural nodularity in the lateral aspect of the right lung base also appears less prominent Small pericardial effusion A new area of sclerosis is seen in the left side of the body of the sternum worrisome for metastatic disease.. There are also increasing sclerotic lesions in the left ischium. Small sclerotic focus posterior aspect the right fifth rib appears unchanged. Increasing lytic and blastic metastases in the left iliac bone with pathologic fractures now seen in the mid to inferior left iliac bone and roof of the left acetabulum. Additional sclerotic densities at the SI joints and at L2 remain unchanged . Report Dictated By: Shari Guerin MD at 07/19/2017 10:07 AM Report E-Signed By: Shari Gueirn MD at 07/19/2017 11:46 AM JOSE GN:RAGINI
[~2017-08-03 11:14] MED LIST changes: +DEXTROSE 5%(*) 100 ML BAG 100 ML IVPB PRN; +IOPAMIDOL 76% 75 ML INFUS BTL 75 ML ONE; +LIDOCAINE/SOD BICARB 8.4% SYR ID PRN; +NS(*) 0.9% 100 ML BAG 100 ML IVPB PRN
[2017-08-03 11:39] VITALS: BP 127/66
[2017-08-03] MEDS ORDERED: GADOBENATE 529MG/1ML 15ML VIAL IVP ONE (11:53)
--- NOTE | 2017-08-03 16:05 | RADIOLOGY IMAGING REPORT ---
FACILITY: [facility] [place] PATIENT NAME: eZe Stoddard : 1955 MR: [id number] V: [id number] EXAM DATE: ORDERING PHYSICIAN: IMER IGLESIAS TECHNOLOGIST: Location: [facility] [place] Patient: Zee Stoddard : 1955 Visit/Account:[id number] Date of Sevice: 08/03/2017 HIP LEFT W W/O CONTRAST COMPARISON: 04/20/2017. HISTORY: Left hip pain, primary malignant neoplasm of right lung metastatic to the hips TECHNIQUE: Pre and postcontrast multiplanar MRI of the hips utilizing T1 weighted and fluid sensitive sequences. CONTRAST: 15 mL gadobenate intravenously. FINDINGS: Extensive bone marrow replacement throughout the left acetabulum extending into the left anterior and posterior acetabular columns, left inferior pubic ramus/ischium, and the left iliac wing, stable dis tribution compared to the previous study. Mildly comminuted nondisplaced fracture through the left ac etabulum involving both anterior and posterior columns, new from previous best seen series 8 images 1 1-15. There are no new lesions in the visualized left femur. Extensive susceptibility artifact related to a previous right hip arthroplasty partially obscures the bones and immediately surrounding soft tissues. With this noted there is extensive marrow signal rep lacement throughout the right pelvis in a similar distribution compared to previous, including right iliac wing, anterior and posterior acetabulum and the pubic rami consistent with widespread metastati c disease. No new bone lesions are identified in the pelvis or sacrum. No acute fractures are identif ied in the right hip or pelvis. At least moderate degenerative changes in the visualized lower lumbar spine without well-defined meta static lesions. Pubic symphysis is intact. Mild edema-like signal within the sacrum at the S2 level b ilaterally, adjacent to the SI joints, unchanged in distribution from the previous study but visually it is slightly more conspicuous. This is probably degenerative edema rather than metastatic lesions. Small left effusion. No right or left iliopsoas or trochanteric bursitis. Postoperative fluid collec tion overlying the right hip prosthesis is smaller, 1.6 x 6.9 cm today compared to 2.4 x 8.2 cm on prior. There is moderate iliac is, left gluteus minimus, medius muscle edema/strain. Mild left pelvic abduct or muscle edema/strain. Mild right pelvic abductor muscle edema/strain. On the right this is unchange d. On the left this has progressed. IMPRESSION: 1. Widespread metastatic disease throughout the pelvis, without significant change in distribution c ompared to 04/20/2017. 2. Nondisplaced comminuted fracture of the left acetabulum is new from 04/20/2017 but age indetermin ate. 3. No new sites of metastatic disease. 4. Left-sided hip muscle edema/strain, slightly progressed compared to previous. Right-sided pelvic adductor muscle edema/strain is table. 5. Postoperative fluid collection overlying a right hip prosthesis is smaller. Report Dictated By: Joshua Enriquez at 08/03/2017 3:45 PM Report E-Signed By: Joshua Enriquez at 08/03/2017 4:00 PM WSN:[id number]
== END 2017-09-02 11:27 | disposition home or self-care (01) ==
LOC: SPU 11:14
PROVIDERS: ATTEND Internal Medicine Medical Oncology
DX: C34.91 Malignant neoplasm of unspecified part of right bronchus or lung (principal); C79.51 Secondary malignant neoplasm of bone; K57.30 Diverticulosis of large intestine without perforation or abscess without bleeding; I31.3 Pericardial effusion (noninflammatory); S32.402A Unspecified fracture of left acetabulum, initial encounter for closed fracture
CPT/HCPCS: 36415; 71260; 73723; 74177; 83036; 85025; A9577; Q9967; 82040; 82247; 82310; 82374; 82435; 82565; 82947; 84075; 84132; 84155; 84295; 84450; 84460; 84520

== ENCOUNTER → 2017-08-03 | Outpatient (CLI) | payer OTHER ==
[2017-01-05 17:19] VITALS: BMI 38.1
[~2017-08-03] MED LIST changes: +POTA8CAP9 PO
--- NOTE | 2017-08-03 14:59 | RADIOLOGY IMAGING REPORT ---
FACILITY: [facility] PATIENT NAME: Zee Stoddard : 1955 MR: [id number] V: [id number] EXAM DATE: ORDERING PHYSICIAN: EDINSON ALDANA TECHNOLOGIST: Location: [facility] [place] Patient: Zee Stoddard : 1955 Visit/Account:[id number] Date of Sevice: 08/03/2017 EXAMINATION: MRI Brain without intravenous contrast MRI Brain with intravenous contrast HISTORY: Lung cancer. COMPARISON: 05/17/2016. TECHNIQUE: Multi-planar, multi-sequence brain MRI was performed before and after IV gadolinium. CONTRAST: 15 mL of IV MultiHance FINDINGS: Brain volume: Normal. Sagittal midline structures: Negative. Ventricles: Negative. Acute ischemic changes: None. Hemorrhage: None. Masses / edema: Subcentimeter enhancing metastasis in the inferior left cerebellum (series 9, image 3; series 10, angelo ge 24). Subcentimeter enhancing metastasis in the left parieto-occipital region (series 9, image 14; series 1 0, image 21). 1.1 x 1.0 cm enhancing metastasis with surrounding vasogenic edema in the right posterior frontal lob e (series 9, image 15; series 10, image 14). Subcentimeter enhancing metastasis in the right posterior frontal lobe (series 9, image 16; series 10 , image 16) Subcentimeter enhancing metastasis in the right parieto-occipital region (series 10, image 25). Stable subcentimeter enhancement and magnetic susceptibility in the robert consistent with capillary te langiectasia or cavernous malformation. No midline shift or herniation. Enhancement: Otherwise negative. Bella-white: Otherwise negative. White matter: Otherwise negative. Vessels: Negative. Extra-axial: Negative. Calvarium / scalp: Negative. Skull base: Negative. Visualized sinuses / orbits: Negative. Visualized upper neck: Negative. IMPRESSION: 1. At least 5 enhancing metastasis in the supratentorial and infratentorial brain as described above. The largest is in the right posterior frontal lobe with surrounding vasogenic edema measuring 1.1 x 1.0 cm. Sulcal effacement in the right posterior frontal lobe. No midline shift or herniation. 2. Stable subcentimeter enhancement and magnetic susceptibility in the robert consistent with capillary telangiectasia or cavernous malformation. Report Dictated By: Thomas Cordova MD at 08/03/2017 2:45 PM Report E-Signed By: Thomas Cordova MD at 08/03/2017 2:55 PM WSN:[id number]
== END ==
LOC: MRI 02:55
PROVIDERS: ATTEND Radiology Radiation Oncology
DX: C79.31 Secondary malignant neoplasm of brain (principal)
CPT/HCPCS: 70553

== ENCOUNTER → 2017-08-16 | Outpatient (CLI) | payer OTHER ==
[2017-01-05 17:19] VITALS: BMI 38.1
[~2017-08-16] MED LIST changes: -DEXTROSE 5%(*) 100 ML BAG 100 ML IVPB PRN; -IOPAMIDOL 76% 75 ML INFUS BTL 75 ML ONE; -LIDOCAINE/SOD BICARB 8.4% SYR ID PRN; -NS(*) 0.9% 100 ML BAG 100 ML IVPB PRN
== END ==
LOC: SPU 07:43
PROVIDERS: ATTEND Internal Medicine Medical Oncology
DX: C34.91 Malignant neoplasm of unspecified part of right bronchus or lung (principal)
CPT/HCPCS: 36415; 82040; 82247; 82310; 82374; 82435; 82565; 82947; 84075; 84132; 84155; 84295; 84450; 84460; 84520; 85027

== ENCOUNTER → 2017-09-07 | Outpatient (CLI) | payer OTHER ==
[2017-01-05 17:19] VITALS: BMI 38.1
--- NOTE | 2017-09-07 16:39 | RADIOLOGY IMAGING REPORT ---
FACILITY: [facility] PATIENT NAME: Zee Stoddard : 1955 MR: [id number] V: [id number] EXAM DATE: ORDERING PHYSICIAN: JAYNE BLOCK TECHNOLOGIST: Location: [facility] [place] Patient: Zee Stoddard : 1955 Visit/Account:[id number] Date of Sevice: 09/07/2017 PELVIS W/O CONTRAST Indication: Metastatic lung cancer Comparison: Pelvis radiograph 08/19/2017. Technique: CT from the iliac crest through the pubic symphysis obtained without contrast. One of the following dose optimization techniques was utilized in the performance of this exam: Autom ated exposure control; adjustment of the mA and/or kV according to the patient's size; or use of an i terative reconstruction technique. Specific details can be referenced in the facility's radiology C T exam operational policy. Findings: There are postoperative changes from a right total hip arthroplasty, unchanged from the santiago or study. There is a comminuted fracture of the left acetabulum, which extends into the left iliac cr est. The fracture has increased in number of fragments and overall size compared to the prior MRI. Th ere are lytic lesions in the left inferior pubic ramus, superior pubic ramus, and left acetabulum, un changed. The sacrum is normal. There are degenerative changes in the lower lumbar spine. Soft tissues are normal. IMPRESSION: 1. Pathologic fracture left acetabulum, with multiple comminuted fragments identified. The number of fragments and the size of the fracture has increased from comparison MRI 08/03/2017. 2. Lytic lesions in the left superior and inferior pubic rami, left acetabulum, consistent with metas tatic lung cancer. This is not significantly changed. 3. No evidence of fracture of the sacrum. 4. Degenerative changes lower lumbar spine. 5. Postoperative changes right total hip arthroplasty. Report Dictated By: Vini Thacker at 09/07/2017 4:28 PM Report E-Signed By: Vini Thacker at 09/07/2017 4:34 PM WSN:[id number]
== END ==
LOC: CT 07:10
PROVIDERS: ATTEND Orthopaedic Surgery
DX: M84.459D Pathological fracture, hip, unspecified, subsequent encounter for fracture with routine healing (principal); C34.90 Malignant neoplasm of unspecified part of unspecified bronchus or lung; C79.51 Secondary malignant neoplasm of bone; M47.816 Spondylosis without myelopathy or radiculopathy, lumbar region; Z96.641 Presence of right artificial hip joint
CPT/HCPCS: 72192

== ENCOUNTER → 2017-09-15 | Outpatient (CLI) | payer OTHER ==
[2017-01-05 17:19] VITALS: BMI 38.1
[~2017-09-15] MED LIST changes: -METF-420 PO; +METF-421 PO
--- NOTE | 2017-09-15 09:13 | EKG ---
FACILITY[place] [facility] [place]IENT NAME: RITESH LINK : [id number] MR: [id number] V: [id number] EXAM DATE: ORDERING PHYSICIAN: CHARLEEN AGUILAR TECHNOLOGIST: MANAN Test Reason : HEART MURMUR Blood Pressure : / mmHG Vent. Rate : 070 BPM Atrial Rate : 070 BPM P-R Int : 194 ms QRS Dur : 086 ms QT Int : 394 ms P-R-T Axes : 033 026 027 degrees QTc Int : 425 ms Normal sinus rhythm Anterior infarct , age undetermined Abnormal ECG When compared with ECG of 17-NOV-2016 10:07, Anterior infarct is now present Confirmed by JOSEPH FONTANEZ ([id number]) on 09/16/2017 11:22:03 AM Referred By: LAUREN Confirmed By:JOSEPH FONTANEZ
== END ==
LOC: SPU 08:14
PROVIDERS: ATTEND Orthopaedic Surgery
DX: S72.012A Unspecified intracapsular fracture of left femur, initial encounter for closed fracture (principal); R94.31 Abnormal electrocardiogram [ECG] [EKG]
CPT/HCPCS: 85651; 86140; 93005

== ENCOUNTER 2017-11-24 11:56 | Outpatient (RCR) | payer OTHER ==
[2017-01-05 17:19] VITALS: Wt 100.0 kg
[2017-09-15 09:06] VITALS: BP 129/79
[2017-09-15 09:25] LABS: PLATELET COUNT, AUTOMATED 345 K/uL (150-450)
[2017-10-19 14:14] VITALS: BP 133/68
[2017-10-19 14:18] LABS: PLATELET COUNT, AUTOMATED 380 K/uL (150-450)
[2017-11-08 15:01] VITALS: BP 132/74
--- NOTE | 2017-11-09 20:28 | ONCOLOGY FOLLOW UP NOTE ---
EVENT DATE: November 08, 2017 REASON FOR FOLLOWUP Metastatic lung adenocarcinoma, ALK rearrangement. CHIEF COMPLAINT Fatigue, left ankle pain. INTERIM HISTORY Zee returns to clinic for a followup visit today. She had formerly been followed by Dr. Skaggs. She wishes to continue followup here at [facility], and she is here to establish care in my clinic. She reports that all things considered, things are going pretty well. She remains on alectinib. She underwent significant hip surgery with the [facility] in [place]. She is recovering from this. She is working with physical therapy, and she is increasing her activity level. She is walking on crutches for the time being as she is uncertain whether she will be able to return to full weightbearing. She denies fever. She has had no shortness of breath, chest pain, or cough. Her appetite is pretty good, and her weight has been stable. ONCOLOGY HISTORY Metastatic lung adenocarcinoma, ALK rearrangement. 1. Initial presentation with one-year history of cough. 2. February 2016: Chest x-ray reveals suspicious mass. Subsequent CT scan of chest shows 2.3 x 2 x 1.6 cm mass with worrisome right hilar and mediastinal adenopathy. 3. February 27, 2016: Bronchoscopy is performed. Subcarinal lymph node with features consistent with lung adenocarcinoma. ALK rearrangement/positive immunohistochemistry noted. 4. March 04, 2016, CT PET: Right lower lobe hypermetabolic nodule compatible with malignancy. Multiple hypermetabolic lymph nodes throughout the mediastinum, right hilum, and bilateral lower neck. 5. 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 Short-term followup was recommended. 6. March 27, 2016: Palliative crizotinib is started. 7. April 06, 2016: MRI lumbar spine shows suspicion for solitary metastatic lesion to L2. 8. May 2016: CT reveals mass in anterior right lobe is markedly decreased in size and measuring 2.3 x 2 x 1.6 cm. There was resolution of hilar and mediastinal adenopathy. There was internal development of a small pericardial effusion. 9. August 11, 2016: CT PET scan shows ongoing evidence of treatment response. 10. September 08, 2016: MRI spine shows interval resolution of metastatic disease at L2. 11. Patient undergoes palliative radiation to right acetabulum and L2-L3. 12. Total hip arthroplasty completed in February 2017. 13. March 08, 2017, CT chest, abdomen, and pelvis: Stable 8 mm right lower lobe nodule, progression of bony metastatic disease in the pelvis involving bilateral iliac bones and left acetabulum. 14. February 2017 bone scan: Vaguely increased activity of right aspect of L4, increased from previous bone scan. New total hip on right. [place] uptake with possible increased activity of bony metastatic disease. 15. March 18, 2017, CT PET: Evidence of progression of disease. 16. April 20, 2017: MRI left hip reveals large focus of metastatic disease involving the left iliac bone and involving the majority of the left acetabulum. Patient undergoes palliative radiation. 17. May 07, 2017: Alectinib is started. 18. August 03, 2017, MRI brain: New right frontal metastasis measuring 13 mm with surrounding edema, punctate 2 mm focus near edge of edema surrounding right frontal metastasis, left parietal metastasis measuring 7 mm, left cerebellar metastasis measuring 4 mm and midline enhancement in brainstem that is stable from prior. 19. August 2017: Patient undergoes stereotactic radiation to brain metastases. 20. September 2017: Patient undergoes left total hip arthroplasty with fixation of a transverse acetabular fracture and tumor resection. PAST MEDICAL HISTORY 1. Advanced non-small cell lung cancer, as above. 2. Hypertension. 3. Diabetes mellitus. CURRENT MEDICATIONS 1. Potassium. 2. Alectinib. 3. Vitamin D3. 4. Hydrochlorothiazide. 5. Janumet. ALLERGIES No known drug allergies. Patient is reportedly allergic to IV CONTRAST. SOCIAL HISTORY Patient is a nonsmoker, nondrinker. There is no history of illicit drug use. FAMILY HISTORY There is a history of breast cancer in her mother and melanoma in her father. PHYSICAL EXAMINATION VITAL SIGNS: Temperature 96.9, blood pressure 132/74, heart rate is 79, respirations 16, oxygen saturation is 94% on room air. Weight is 100 kg. GENERAL: Patient is alert and oriented times three, no apparent distress, sitting in the exam room chair. She is interactive and quite pleasant. HEENT: Anicteric sclerae. NEUROLOGIC: Grossly nonfocal. She is ambulating with crutches. EXTREMITIES: No edema, clubbing, or cyanosis. SKIN: No concerning rash or lesion. LABORATORY STUDIES AND IMAGING Reviewed per the [facility] and [facility] records. PATHOLOGY As above. ASSESSMENT AND PLAN Metastatic lung adenocarcinoma, ALK rearrangement. I had a good visit with Zee today. We spent a good deal of time reviewing her oncology history. She has been treated initially with crizotinib with response, and with subsequent progression, she has been taking alectinib. Most recently, she has undergone palliative stereotactic radiation to brain metastases, and she has also undergone a left total hip due to progressive bony metastatic disease at that site. Clinically, she appears stable, but she is due to undergo a repeat CT PET scan as well as MRI of the brain. She plans to have these performed in [place] later this month. She would like to follow up here in my [facility] clinic, and I am delighted to have her. We discussed options for further treatment. If there is evidence of progression despite ongoing alectinib, she could consider cytotoxic chemotherapy with carboplatin and pemetrexed. We could also give thought to using brigatinib. She has apparently visited with Dr. Funez at the [facility]. I would certainly look forward to his input if there is evidence of progression later this month. We will tentatively plan to have her follow up with me in my [place] clinic. If this is not possible, I will plan to see her back here in my [facility] clinic later this month. MEÑOD
[2017-11-24 12:07] VITALS: BP 132/72
--- NOTE | 2017-11-24 19:53 | ONCOLOGY FOLLOW UP NOTE ---
EVENT DATE: November 24, 2017 REASON FOR FOLLOWUP Metastatic lung adenocarcinoma, ALK rearrangement. CHIEF COMPLAINT Fatigue, ankle swelling, arthralgias. INTERIM HISTORY Zee returns to clinic for a follow-up visit today. She is here with her . Since our last visit, she has undergone a follow-up CT PET scan as well as brain MRI. She has visited with Dr. Lemus and his team in the Radiation Oncology Clinic at the [facility]. Her recent CT PET scan was reviewed with her at that time. She reports that physically she seems to be holding her own. She continues to walk with a crutch, as she tends to have a "lurch" if she does not. She has not fallen. Her pain is fairly well controlled. She reports no significant nausea, and her bowel habits have been pretty stable. Her appetite is good, and her weight is stable as well. She has had some swelling in her ankles, but she reports no redness or pain of either soft tissue of lower extremity. ONCOLOGY HISTORY Metastatic lung adenocarcinoma, ALK rearrangement. 1. Initial presentation with one-year history of cough. 2. February 2016: Chest x-ray reveals suspicious mass. Subsequent CT scan of chest shows 2.3 x 2 x 1.6 cm mass with worrisome right hilar and mediastinal adenopathy. 3. February 27, 2016: Bronchoscopy is performed. Subcarinal lymph node with features consistent with lung adenocarcinoma. ALK rearrangement/positive immunohistochemistry noted. 4. March 04, 2016, CT PET: Right lower lobe hypermetabolic nodule compatible with malignancy. Multiple hypermetabolic lymph nodes throughout the mediastinum, right hilum, and bilateral lower neck. 5. 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 Short-term followup was recommended. 6. March 27, 2016: Palliative crizotinib is started. 7. April 06, 2016: MRI lumbar spine shows suspicion for solitary metastatic lesion to L2. 8. May 2016: CT reveals mass in anterior right lobe is markedly decreased in size and measuring 2.3 x 2 x 1.6 cm. There was resolution of hilar and mediastinal adenopathy. There was internal development of a small pericardial effusion. 9. August 11, 2016: CT PET scan shows ongoing evidence of treatment response. 10. September 08, 2016: MRI spine shows interval resolution of metastatic disease at L2. 11. Patient undergoes palliative radiation to right acetabulum and L2-L3. 12. Total hip arthroplasty completed in February 2017. 13. March 08, 2017, CT chest, abdomen, and pelvis: Stable 8 mm right lower lobe nodule, progression of bony metastatic disease in the pelvis involving bilateral iliac bones and left acetabulum. 14. February 2017 bone scan: Vaguely increased activity of right aspect of L4, increased from previous bone scan. New total hip on right. [place] uptake with possible increased activity of bony metastatic disease. 15. March 18, 2017, CT PET: Evidence of progression of disease. 16. April 20, 2017: MRI left hip reveals large focus of metastatic disease involving the left iliac bone and involving the majority of the left acetabulum. Patient undergoes palliative radiation. 17. May 07, 2017: Alectinib is started. 18. August 03, 2017, MRI brain: New right frontal metastasis measuring 13 mm with surrounding edema, punctate 2 mm focus near edge of edema surrounding right frontal metastasis, left parietal metastasis measuring 7 mm, left cerebellar metastasis measuring 4 mm and midline enhancement in brainstem that is stable from prior. 19. August 2017: Patient undergoes stereotactic radiation to brain metastases. 20. September 2017: Patient undergoes left total hip arthroplasty with fixation of a transverse acetabular fracture and tumor resection. 21. November 16, 2017: MRI brain shows slightly increased size of a 4 mm metastasis in the left pleural lobe, previously measuring 2 mm. The remainder of metastases have either decreased in size or are no longer seen. There are no new lesions. 22. November 22, 2017, CT PET scan: All previously described hypermetabolic metastatic disease has resolved, but there is a new left subpectoral enlarged/ hypermetabolic lymph node. PAST MEDICAL HISTORY 1. Advanced non-small cell lung cancer, as above. 2. Hypertension. 3. Diabetes mellitus. CURRENT MEDICATIONS 1. Potassium. 2. Alectinib. 3. Vitamin D3. 4. Hydrochlorothiazide. 5. Janumet. ALLERGIES No known drug allergies. Patient is reportedly allergic to IV CONTRAST. SOCIAL HISTORY Patient is a nonsmoker, nondrinker. There is no history of illicit drug use. FAMILY HISTORY There is a history of breast cancer in her mother and melanoma in her father. VITAL SIGNS: Temperature 99.1, blood pressure 136/72, heart rate is 75, respirations 16, oxygen saturation is 90% on room air. PHYSICAL EXAMINATION GENERAL: Patient is alert and oriented times three, in no apparent distress, sitting in the exam room chair. She is interactive and pleasant. HEENT: Anicteric sclerae. NEUROLOGIC: Grossly nonfocal, although her gait is antalgic with a crutch. EXTREMITIES: Exam reveals some edema of the bilateral lower extremities, mostly pedal. SKIN: No concerning rash or lesion. LABORATORY STUDIES AND IMAGING Reviewed per the [facility] and [facility] records. IMAGING Please see Oncology History. ASSESSMENT AND PLAN Metastatic lung adenocarcinoma, ALK rearrangement. Zee continues on palliative alectinib, which she is tolerating without significant toxicity. We spent time today reviewing her current symptoms, and the results of her recent follow-up CT PET scan and brain MRI. A prior 2 mm lesion in the brain has grown to 4 mm, and she has already undergone stereotactic radiation to that lesion with Dr. Lemus in [place]. We spent time today discussing her excellent response to alectinib. She does appear, however, to have a hypermetabolic and enlarged lymph node under the left subpectoral. As discussed , I have reviewed her situation with Dr. Lemus, and I would agree with his plan to give stereotactic radiation therapy to this node. We discussed the rationale for this intervention, and the patient is in agreement. I would recommend that she have a follow-up CT PET scan and brain MRI in three months, and that she follow up here in about 4-6 weeks to make sure that everything is going okay. She agrees with this plan. [facility]
== END 2017-12-13 ==
LOC: ONC 11:56
PROVIDERS: ATTEND Internal Medicine Medical Oncology
DX: C34.91 Malignant neoplasm of unspecified part of right bronchus or lung (principal); C79.51 Secondary malignant neoplasm of bone; Z96.642 Presence of left artificial hip joint; C79.31 Secondary malignant neoplasm of brain
CPT/HCPCS: 36415; 82040; 82247; 82310; 82374; 82435; 82565; 82947; 84075; 84132; 84155; 84295; 84450; 84460; 84520; 85025; 85027; 99212

== ENCOUNTER 2018-02-08 09:30 | Outpatient (RCR) | payer OTHER ==
[2017-01-05 17:19] VITALS: Wt 104.7 kg
[2017-12-19 14:19] LABS: PLATELET COUNT, AUTOMATED 386 K/uL (150-450)
[2018-01-11 15:28] VITALS: BP 141/68
--- NOTE | 2018-01-11 20:40 | ONCOLOGY FOLLOW UP NOTE ---
EVENT DATE: January 11, 2018 EVENT DATE: November 24, 2017 REASON FOR FOLLOWUP Metastatic lung adenocarcinoma, ALK rearrangement. CHIEF COMPLAINT Fatigue, arthralgias. INTERIM HISTORY Zee returns to clinic for a followup visit today. She is accompanied by her . Symptomatically, she has continued to do fairly well all things considered. She has had an ongoing problem with her gait, requiring a crutch to get around. She and her family had gone four-wheeling recently, and she reports that she has had some more musculoskeletal pain as a result of that. She reports no new shortness of breath, chest pain, or cough. She did complete stereotactic radiation to the pectoral node in the interim. This went fine. Her appetite has been fair, and her weight has been stable. She has not been doing any formal physical therapy, but she reports an ongoing "foot drop" on the left. She has not had any falls or trauma. ONCOLOGY HISTORY Metastatic lung adenocarcinoma, ALK rearrangement. 1. Initial presentation with one-year history of cough. 2. February 2016: Chest x-ray reveals suspicious mass. Subsequent CT scan of chest shows 2.3 x 2 x 1.6 cm mass with worrisome right hilar and mediastinal adenopathy. 3. February 27, 2016: Bronchoscopy is performed. Subcarinal lymph node with features consistent with lung adenocarcinoma. ALK rearrangement/positive immunohistochemistry noted. 4. March 04, 2016, CT/PET: Right lower lobe hypermetabolic nodule compatible with malignancy. Multiple hypermetabolic lymph nodes throughout the mediastinum, right hilum, and bilateral lower neck. 5. 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 Short-term followup was recommended. 6. March 27, 2016: Palliative crizotinib is started. 7. April 06, 2016: MRI lumbar spine shows suspicion for solitary metastatic lesion to L2. 8. May 2016: CT reveals mass in anterior right lobe is markedly decreased in size and measuring 2.3 x 2 x 1.6 cm. There was resolution of hilar and mediastinal adenopathy. There was internal development of a small pericardial effusion. 9. August 11, 2016: CT/PET scan shows ongoing evidence of treatment response. 10. September 08, 2016: MRI spine shows interval resolution of metastatic disease at L2. 11. Patient undergoes palliative radiation to right acetabulum and L2-L3. 12. Total hip arthroplasty completed in February 2017. 13. March 08, 2017, CT chest, abdomen, and pelvis: Stable 8 mm right lower lobe nodule, progression of bony metastatic disease in the pelvis involving bilateral iliac bones and left acetabulum. 14. February 2017 bone scan: Vaguely increased activity of right aspect of L4, increased from previous bone scan. New total hip on right. [place] uptake with possible increased activity of bony metastatic disease. 15. March 18, 2017, CT/PET: Evidence of progression of disease. 16. April 20, 2017: MRI left hip reveals large focus of metastatic disease involving the left iliac bone and involving the majority of the left acetabulum. Patient undergoes palliative radiation. 17. May 07, 2017: Alectinib is started. 18. August 03, 2017, MRI brain: New right frontal metastasis measuring 13 mm with surrounding edema, punctate 2 mm focus near edge of edema surrounding right frontal metastasis, left parietal metastasis measuring 7 mm, left cerebellar metastasis measuring 4 mm, and midline enhancement in brainstem that is stable from prior. 19. August 2017: Patient undergoes stereotactic radiation to brain metastases. 20. September 2017: Patient undergoes left total hip arthroplasty with fixation of a transverse acetabular fracture and tumor resection. 21. November 16, 2017: MRI brain shows slightly increased size of a 4 mm metastasis in the left pleural lobe, previously measuring 2 mm. The remainder of metastases have either decreased in size or are no longer seen. There are no new lesions. 22. November 22, 2017, CT/PET scan: All previously described hypermetabolic metastatic disease has resolved, but there is a new left subpectoral enlarged/hypermetabolic lymph node. PAST MEDICAL HISTORY 1. Advanced non-small cell lung cancer, as above. 2. Hypertension. 3. Diabetes mellitus. CURRENT MEDICATIONS 1. Alectinib 600 mg p.o. b.i.d. 2. Potassium chloride. 3. Vitamin D3. 4. Hydrochlorothiazide 25 mg p.o. daily. 5. Janumet XR. ALLERGIES No known drug allergies. Patient is reportedly allergic to IV CONTRAST. SOCIAL HISTORY Patient is a nonsmoker, nondrinker. There is no history of illicit drug use. FAMILY HISTORY There is a history of breast cancer in her mother and melanoma in her father. VITAL SIGNS Temperature 97.2, blood pressure 141/68, heart rate is 65, respirations 18, and oxygen saturation is 96% on room air. Weight is 104.7 kg. PHYSICAL EXAMINATION GENERAL: Patient is alert and oriented times three, in no apparent distress, sitting in the exam room chair. She is interactive and pleasant. HEENT: Anicteric sclerae. NEUROLOGIC: Antalgic, but fairly stable gait. She is not able to raise her toes on the left side completely. EXTREMITIES: No clubbing, edema, or cyanosis. SKIN: No concerning rash or lesion. LABORATORY STUDIES AND IMAGING Reviewed per the [facility] record. IMAGING None today. ASSESSMENT AND PLAN Metastatic lung adenocarcinoma, ALK rearrangement. Zee continues on systemic palliative therapy with alectinib. She continues to tolerate the medication without any significant difficulty. She had completed additional stereotactic radiation to the subpectoral node as noted above. We spent time today discussing her recent activities while four-wheeling. She has had some increased musculoskeletal pain. She basically reports that she has used muscles that she is not used to using. She has no new focal complaints otherwise, and no new findings on exam. As discussed today, I would like to see her back for a followup in about one month. She will be due for repeat CT/PET scan and brain MRI in mid to late February. HANK
[2018-01-20 14:41] VITALS: BP 127/64
[2018-01-20 14:46] LABS: PLATELET COUNT, AUTOMATED 393 K/uL (150-450)
[~2018-02-08 09:30] MED LIST changes: -LOSA50TA72 PO; +LOSA50TA74 PO; -METF-421 PO; +METF-452 PO
[2018-02-08 09:43] VITALS: BP 130/80
[2018-02-08 10:06] LABS: PLATELET COUNT, AUTOMATED 357 K/uL (150-450)
== END 2018-03-19 ==
LOC: SPU 09:30
PROVIDERS: ATTEND Internal Medicine Medical Oncology
DX: C34.91 Malignant neoplasm of unspecified part of right bronchus or lung (principal); C79.51 Secondary malignant neoplasm of bone; Z96.642 Presence of left artificial hip joint; C79.31 Secondary malignant neoplasm of brain; M25.552 Pain in left hip; M89.9 Disorder of bone, unspecified
CPT/HCPCS: 36415; 82040; 82247; 82310; 82374; 82435; 82565; 82947; 84075; 84132; 84155; 84295; 84450; 84460; 84520; 85025; 99212

== ENCOUNTER → 2018-03-14 | Outpatient (CLI) | payer OTHER ==
[2017-01-05 17:19] VITALS: BMI 38.1
[2018-03-14 09:04] LABS: LDL CHOLESTEROL 131 mg/dl
== END ==
LOC: SPU 08:19
PROVIDERS: ATTEND Family Medicine
DX: E78.2 Mixed hyperlipidemia (principal); E11.9 Type 2 diabetes mellitus without complications
CPT/HCPCS: 82040; 82247; 82310; 82374; 82435; 82465; 82565; 82947; 83036; 83718; 84075; 84132; 84155; 84295; 84450; 84460; 84478; 84520

== ENCOUNTER 2018-05-18 08:41 | Outpatient (RCR) | payer OTHER ==
[2017-01-05 17:19] VITALS: BMI 38.1
[2018-03-14 08:36] VITALS: BP 148/93
[2018-04-19 11:59] VITALS: BP 138/83
[2018-04-19 12:11] LABS: PLATELET COUNT, AUTOMATED 312 K/uL (150-450)
--- NOTE | 2018-04-19 21:32 | ONCOLOGY FOLLOW UP NOTE ---
EVENT DATE: April 19, 2018 REASON FOR FOLLOWUP Metastatic lung adenocarcinoma, ALK rearrangement. CHIEF COMPLAINT Arthralgias INTERIM HISTORY Zee returns to clinic for a followup visit today. She reports that things have been going better since our last visit. She had gone to visit family over gi and had gotten in the pool several times to exercise. Since returning to [place], she has been going to the recreation center here in town continuing her pool work. This has made her feel better in general. Her arthralgias have been fairly stable, but she reports perhaps some better mobility. She also reports being done with steroids, and she has had no further focal neurologic symptoms. She continues on palliative alectinib, and she reports good tolerability. ONCOLOGY HISTORY Metastatic lung adenocarcinoma, ALK rearrangement. 1. Initial presentation with one-year history of cough. 2. February 2016: Chest x-ray reveals suspicious mass. Subsequent CT scan of chest shows 2.3 x 2 x 1.6 cm mass with worrisome right hilar and mediastinal adenopathy. 3. February 27, 2016: Bronchoscopy is performed. Subcarinal lymph node with features consistent with lung adenocarcinoma. ALK rearrangement/positive immunohistochemistry noted. 4. March 04, 2016, CT/PET: Right lower lobe hypermetabolic nodule compatible with malignancy. Multiple hypermetabolic lymph nodes throughout the mediastinum, right hilum, and bilateral lower neck. 5. 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 Short-term followup was recommended. 6. March 27, 2016: Palliative crizotinib is started. 7. April 06, 2016: MRI lumbar spine shows suspicion for solitary metastatic lesion to L2. 8. May 2016: CT reveals mass in anterior right lobe is markedly decreased in size and measuring 2.3 x 2 x 1.6 cm. There was resolution of hilar and mediastinal adenopathy. There was internal development of a small pericardial effusion. 9. August 11, 2016: CT/PET scan shows ongoing evidence of treatment response. 10. September 08, 2016: MRI spine shows interval resolution of metastatic disease at L2. 11. Patient undergoes palliative radiation to right acetabulum and L2-L3. 12. Total hip arthroplasty completed in February 2017. 13. March 08, 2017, CT chest, abdomen, and pelvis: Stable 8 mm right lower lobe nodule, progression of bony metastatic disease in the pelvis involving bilateral iliac bones and left acetabulum. 14. February 2017 bone scan: Vaguely increased activity of right aspect of L4, increased from previous bone scan. New total hip on right. [place] uptake with possible increased activity of bony metastatic disease. 15. March 18, 2017, CT/PET: Evidence of progression of disease. 16. April 20, 2017: MRI left hip reveals large focus of metastatic disease involving the left iliac bone and involving the majority of the left acetabulum. Patient undergoes palliative radiation. 17. May 07, 2017: Alectinib is started. 18. August 03, 2017, MRI brain: New right frontal metastasis measuring 13 mm with surrounding edema, punctate 2 mm focus near edge of edema surrounding right frontal metastasis, left parietal metastasis measuring 7 mm, left cerebellar metastasis measuring 4 mm, and midline enhancement in brainstem that is stable from prior. 19. August 2017: Patient undergoes stereotactic radiation to brain metastases. 20. September 2017: Patient undergoes left total hip arthroplasty with fixation of a transverse acetabular fracture and tumor resection. 21. November 16, 2017: MRI brain shows slightly increased size of a 4 mm metastasis in the left pleural lobe, previously measuring 2 mm. The remainder of metastases have either decreased in size or are no longer seen. There are no new lesions. 22. November 22, 2017, CT/PET scan: All previously described hypermetabolic metastatic disease has resolved, but there is a new left subpectoral enlarged/hypermetabolic lymph node. PAST MEDICAL HISTORY 1. Advanced non-small cell lung cancer, as above. 2. Hypertension. 3. Diabetes mellitus. CURRENT MEDICATIONS 1. Alectinib 600 mg p.o. b.i.d. 2. Potassium chloride. 3. Vitamin D3. 4. Hydrochlorothiazide 25 mg p.o. daily. 5. Janumet XR. ALLERGIES No known drug allergies. Patient is reportedly allergic to IV CONTRAST. SOCIAL HISTORY Patient is a nonsmoker, nondrinker. There is no history of illicit drug use. FAMILY HISTORY There is a history of breast cancer in her mother and melanoma in her father. VITAL SIGNS Stable. Patient is afebrile PHYSICAL EXAM GENERAL: Patient is alert and oriented x3, in no apparent distress, sitting in exam room chair. Interactive and pleasant. HEENT: Anicteric sclerae NEUROLOGIC: Grossly non-focal. Gait is antalgic but stable EXTREMITIES: No edema, clubbing, or cyanosis. No tenderness to palpation or erythema SKIN: No concerning rash or lesion ASSESSMENT AND PLAN Metastatic lung adenocarcinoma, ALK rearrangemet. I had a good visit with Ms. Stoddard today. Symptomatically, she continues to do pretty well, all things considered. Her QoL remains good and pain is controlled. She continues to do well with palliative Alectinib, and this will continue. We discussed our plan moving forward for followup CT PET scan in mid May to accompany her followup Brain MRI. We will try to arrange followup visits with myself and Radiation Oncology on the same day. HANK
--- NOTE | 2018-04-19 21:55 | ONCOLOGY FOLLOW UP NOTE ---
EVENT DATE: April 19, 2018 REASON FOR FOLLOWUP Metastatic lung adenocarcinoma, ALK rearrangement. CHIEF COMPLAINT Arthralgias. INTERIM HISTORY Zee returns to clinic for a followup visit today. Since our last visit, she did go to visit family for Thanksgiving. She had done some pool exercises at that time, and since returning to [place], she has been going to the recreation center here in town for ongoing pool therapy/exercise. In general, it is making her feel better with less arthralgias and better mobility. She reports no fever. She has had a good appetite, and her weight has been stable. She has had no worsened shortness of breath, no productive cough, and no chest pain. She remains on palliative alectinib, and ongoing tolerance is quite good. REVIEW OF SYSTEMS Otherwise negative, and all systems were reviewed. ONCOLOGY HISTORY Metastatic lung adenocarcinoma, ALK rearrangement. 1. Initial presentation with one-year history of cough. 2. February 2016: Chest x-ray reveals suspicious mass. Subsequent CT scan of chest shows 2.3 x 2 x 1.6 cm mass with worrisome right hilar and mediastinal adenopathy. 3. February 27, 2016: Bronchoscopy is performed. Subcarinal lymph node with features consistent with lung adenocarcinoma. ALK rearrangement/positive immunohistochemistry noted. 4. March 04, 2016, CT/PET: Right lower lobe hypermetabolic nodule compatible with malignancy. Multiple hypermetabolic lymph nodes throughout the mediastinum, right hilum, and bilateral lower neck. 5. 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 Short-term followup was recommended. 6. March 27, 2016: Palliative crizotinib is started. 7. April 06, 2016: MRI lumbar spine shows suspicion for solitary metastatic lesion to L2. 8. May 2016: CT reveals mass in anterior right lobe is markedly decreased in size and measuring 2.3 x 2 x 1.6 cm. There was resolution of hilar and mediastinal adenopathy. There was internal development of a small pericardial effusion. 9. August 11, 2016: CT/PET scan shows ongoing evidence of treatment response. 10. September 08, 2016: MRI spine shows interval resolution of metastatic disease at L2. 11. Patient undergoes palliative radiation to right acetabulum and L2-L3. 12. Total hip arthroplasty completed in February 2017. 13. March 08, 2017, CT chest, abdomen, and pelvis: Stable 8 mm right lower lobe nodule, progression of bony metastatic disease in the pelvis involving bilateral iliac bones and left acetabulum. 14. February 2017 bone scan: Vaguely increased activity of right aspect of L4, increased from previous bone scan. New total hip on right. [place] uptake with possible increased activity of bony metastatic disease. 15. March 18, 2017, CT/PET: Evidence of progression of disease. 16. April 20, 2017: MRI left hip reveals large focus of metastatic disease involving the left iliac bone and involving the majority of the left acetabulum. Patient undergoes palliative radiation. 17. May 07, 2017: Alectinib is started. 18. August 03, 2017, MRI brain: New right frontal metastasis measuring 13 mm with surrounding edema, punctate 2 mm focus near edge of edema surrounding right frontal metastasis, left parietal metastasis measuring 7 mm, left cerebellar metastasis measuring 4 mm, and midline enhancement in brainstem that is stable from prior. 19. August 2017: Patient undergoes stereotactic radiation to brain metastases. 20. September 2017: Patient undergoes left total hip arthroplasty with fixation of a transverse acetabular fracture and tumor resection. 21. November 16, 2017: MRI brain shows slightly increased size of a 4 mm metastasis in the left pleural lobe, previously measuring 2 mm. The remainder of metastases have either decreased in size or are no longer seen. There are no new lesions. 22. November 22, 2017, CT/PET scan: All previously described hypermetabolic metastatic disease has resolved, but there is a new left subpectoral enlarged/hypermetabolic lymph node. PAST MEDICAL HISTORY 1. Advanced non-small cell lung cancer, as above. 2. Hypertension. 3. Diabetes mellitus. CURRENT MEDICATIONS 1. Alectinib 600 mg p.o. b.i.d. 2. Potassium chloride. 3. Vitamin D3. 4. Hydrochlorothiazide 25 mg p.o. daily. 5. Janumet XR. ALLERGIES No known drug allergies. Patient is reportedly allergic to IV CONTRAST. SOCIAL HISTORY Patient is a nonsmoker, nondrinker. There is no history of illicit drug use. FAMILY HISTORY There is a history of breast cancer in her mother and melanoma in her father. VITAL SIGNS Temperature 97.6, blood pressure 138/83, heart rate is 64, respirations 16, oxygen saturation 90% on room air. PHYSICAL EXAMINATION GENERAL: Patient is alert and oriented times three, no apparent distress, sitting in the exam room chair. HEENT: Anicteric sclerae. No significant oropharyngeal lesions. NEUROLOGIC: Grossly nonfocal. Her gait is stable, but antalgic; ambulating with walking stick. EXTREMITIES: No edema, clubbing, or cyanosis. LABORATORY STUDIES Reviewed per the [facility] and [facility] records. IMAGING Reviewed per the [facility] and [facility] records. ASSESSMENT AND PLAN Metastatic lung adenocarcinoma, ALK rearrangement. Ms. Stoddard continues to do remarkably well on second line alectinib. Toxicity has been minimal. She has been getting more physical activity, mostly by way of working out in the pool. This has been very helpful, and I have encouraged her to continue doing so. She has no particular signs or symptoms to suggest progression of her lung cancer. We discussed that her most recent imaging both with CT PET scan and MRI were performed in February. I have recommended that she go for a repeat CT PET scan and brain MRI in May. We will plan to have her follow up in [place], hopefully on the same day with both myself and with Dr. Lemus and/or Dr. Fleming. [facility]PITALMarky
--- NOTE | 2018-04-25 15:20 | NUR ---
BRIANA faxed requested FMLA info (patient's ) to his employer.
[~2018-05-18 08:41] MED LIST changes: -LOSA50TA74 PO; +LOSA50TA80 PO
[2018-05-18 08:49] VITALS: BP 140/68
[2018-05-18 09:08] LABS: PLATELET COUNT, AUTOMATED 308 K/uL (150-450)
== END 2018-06-11 ==
LOC: SPU 08:41
PROVIDERS: ATTEND Internal Medicine Medical Oncology
DX: C34.91 Malignant neoplasm of unspecified part of right bronchus or lung (principal); C79.51 Secondary malignant neoplasm of bone; Z96.642 Presence of left artificial hip joint; C79.31 Secondary malignant neoplasm of brain; M25.552 Pain in left hip; M89.9 Disorder of bone, unspecified; I10 Essential (primary) hypertension; E11.9 Type 2 diabetes mellitus without complications
CPT/HCPCS: 36415; 82040; 82247; 82310; 82374; 82435; 82565; 82947; 84075; 84132; 84155; 84295; 84450; 84460; 84520; 85025; 99212

== ENCOUNTER → 2018-06-19 | Outpatient (CLI) | payer OTHER ==
[2017-01-05 17:19] VITALS: BMI 38.1
== END ==
LOC: SPU 13:22
PROVIDERS: ATTEND Family Medicine
DX: E11.9 Type 2 diabetes mellitus without complications (principal)
CPT/HCPCS: 83036

== ENCOUNTER 2018-07-18 08:25 | Outpatient (RCR) | payer OTHER ==
[2017-01-05 17:19] VITALS: BMI 38.1
[2018-06-19 13:27] LABS: PLATELET COUNT, AUTOMATED 364 K/uL (150-450)
--- NOTE | 2018-06-20 11:46 | ONCOLOGY FOLLOW UP NOTE ---
EVENT DATE: June 19, 2018 CHIEF COMPLAINT Followup for metastatic lung cancer, ALK positive. HISTORY OF PRESENT ILLNESS Patient is a 62-year old female who is seen today in followup. She continues to feel well. She is trying to remain active and walks in the pool five days a week. She also does pool aerobics two days a week. She has been somewhat frustrated as coordination of care between [place], [facility] [place] and [place] has not been optimal. We spent a long time discussing that our electronic medical records are not connected at this time. We reviewed that Dr. Fournier always has access to the [facility] and [place] electronic medical records and that coordination of care was being done. She was concerned that no one was reviewing her labs, which we did today. ONCOLOGY HISTORY Metastatic lung adenocarcinoma, ALK rearrangement. 1. Initial presentation with one-year history of cough. 2. February 2016: Chest x-ray reveals suspicious mass. Subsequent CT scan of chest shows 2.3 x 2 x 1.6 cm mass with worrisome right hilar and mediastinal adenopathy. 3. February 27, 2016: Bronchoscopy is performed. Subcarinal lymph node with features consistent with lung adenocarcinoma. ALK rearrangement/positive immunohistochemistry noted. 4. March 04, 2016, CT/PET: Right lower lobe hypermetabolic nodule compatible with malignancy. Multiple hypermetabolic lymph nodes throughout the mediastinum, right hilum, and bilateral lower neck. 5. 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 Short-term followup was recommended. 6. March 27, 2016: Palliative crizotinib is started. 7. April 06, 2016: MRI lumbar spine shows suspicion for solitary metastatic lesion to L2. 8. May 2016: CT reveals mass in anterior right lobe is markedly decreased in size and measuring 2.3 x 2 x 1.6 cm. There was resolution of hilar and mediastinal adenopathy. There was internal development of a small pericardial effusion. 9. August 11, 2016: CT/PET scan shows ongoing evidence of treatment response. 10. September 08, 2016: MRI spine shows interval resolution of metastatic disease at L2. 11. Patient undergoes palliative radiation to right acetabulum and L2-L3. 12. Total hip arthroplasty completed in February 2017. 13. March 08, 2017, CT chest, abdomen, and pelvis: Stable 8 mm right lower lobe nodule, progression of bony metastatic disease in the pelvis involving bilateral iliac bones and left acetabulum. 14. February 2017 bone scan: Vaguely increased activity of right aspect of L4, increased from previous bone scan. New total hip on right. [place] uptake with possible increased activity of bony metastatic disease. 15. March 18, 2017, CT/PET: Evidence of progression of disease. 16. April 20, 2017: MRI left hip reveals large focus of metastatic disease involving the left iliac bone and involving the majority of the left acetabulum. Patient undergoes palliative radiation. 17. May 07, 2017: Alectinib is started. 18. August 03, 2017, MRI brain: New right frontal metastasis measuring 13 mm with surrounding edema, punctate 2 mm focus near edge of edema surrounding right frontal metastasis, left parietal metastasis measuring 7 mm, left cerebellar metastasis measuring 4 mm, and midline enhancement in brainstem that is stable from prior. 19. August 2017: Patient undergoes stereotactic radiation to brain metastases. 20. September 2017: Patient undergoes left total hip arthroplasty with fixation of a transverse acetabular fracture and tumor resection. 21. November 16, 2017: MRI brain shows slightly increased size of a 4 mm metastasis in the left pleural lobe, previously measuring 2 mm. The remainder of metastases have either decreased in size or are no longer seen. There are no new lesions. 22. November 22, 2017, CT/PET scan: All previously described hypermetabolic metastatic disease has resolved, but there is a new left subpectoral enlarged/hypermetabolic lymph node. 23. June 09, 2018. PET scan showed new hypermetabolic lesion to the sternum with a questionable focal hypermetabolic area to the left hilum, suspicious for new metastatic adenopathy, with no CT correlate. PAST MEDICAL HISTORY 1. Advanced non-small cell lung cancer, ALK positive. 2. Hypertension. 3. Type 2 diabetes. PAST SURGICAL HISTORY 1. Right total hip replacement. 2. Left hip reconstruction. 3. Left knee replacement. FAMILY HISTORY History of breast cancer in her mother and melanoma in her father. SOCIAL HISTORY Patient is . They have two grown children. 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 She is a never smoker. She does not drink alcohol or use illicit drugs. CURRENT MEDICATIONS 1. Alectinib 600 mg b.i.d. 2. Potassium. 3. Vitamin D3. 4. Hydrochlorothiazide 25 mg. 5. Janumet XR. 6. Aspirin 81 mg daily. ALLERGIES No known drug allergies. ALLERGIC to IV CONTRAST. REVIEW OF SYSTEMS A 12-point review of systems is performed and is negative except as stated above. PHYSICAL EXAMINATION VITAL SIGNS: Blood pressure 129/75, pulse 76, respirations 16, temperature 96.8, O2 saturation 100%. GENERAL: Patient is a well-developed, well-nourished female in no acute distress. HEAD: Normocephalic, atraumatic. EYES: Sclerae anicteric. MOUTH: Moist mucous membranes. NECK: Supple. No adenopathy. LUNGS: Clear bilaterally. CARDIOVASCULAR: Heart rate regular, 76 per minute without murmur, S3 or S4. EXTREMITIES: No edema. NEUROLOGIC: Nonfocal. LABS CBC today reveals a WBC of 4.7, ANC of 3.0, hemoglobin 11.1, hematocrit 33.7, platelets 354,000. CMP is within normal limits except for an elevated alkaline phosphatase of 229. IMPRESSION The patient is a 62-year old female diagnosed with ALK positive non-small cell lung cancer in February 2016. Noted to have metastatic disease to the mediastinal and right hilar lymph nodes and bilateral neck. Began crizotinib in March 2016. MRI of the lumbar spine in March 2016 was positive for a solitary metastatic lesion to L2, resolved by September 2016. Completed palliative radiation to the right acetabulum, L2-L3, followed by surgery. In April 2017, noted to have a large focus of metastatic disease in the left iliac bone and the left acetabulum. She completed palliative radiation. Treatment switched to alectinib in April 2017. MRI of the brain in July 2017 showed metastatic disease. Completed stereotactic radiation. PET CT in June 2018 showed a new hypermetabolic lesion to the sternum with focal hypermetabolism to the left hilum, suspicious for new metastatic adenopathy with no CT scan correlate. PLAN 1. Metastatic lung cancer. Patient will continue on alectinib. She is tolerating this without issue. 2. Sternal lesion. She has an appointment to see Dr. Lemus, radiation oncologist, on June 21, 2018. 3. Labs. Patient was concerned that her labs were not being reviewed. We spent a total of 45 minutes today discussing her treatment and reviewing labs over the past two years. These have been very stable. Alkaline phosphatase has been intermittently elevated but she realizes this is likely due to her bone disease. 4. Follow up with Dr. Lemus on June 21, 2018 to discuss possible radiation. 5. Follow up with Dr. Fournier in four to six weeks after radiation. She will call us for this appointment. Patient felt all her questions and concerns had been addressed at today's visit. HANK
[2018-07-18 08:48] VITALS: BP 150/70
[2018-07-18 08:50] LABS: PLATELET COUNT, AUTOMATED 307 K/uL (150-450)
[2018-08-15 09:00] VITALS: BP 126/66
[2018-08-15 09:25] LABS: PLATELET COUNT, AUTOMATED 342 K/uL (150-450)
== END 2018-09-14 ==
LOC: SPU 08:25
PROVIDERS: ATTEND Internal Medicine Medical Oncology
DX: C34.91 Malignant neoplasm of unspecified part of right bronchus or lung (principal); C79.51 Secondary malignant neoplasm of bone; M25.552 Pain in left hip; M89.9 Disorder of bone, unspecified
CPT/HCPCS: 36415; 82040; 82247; 82310; 82374; 82435; 82565; 82947; 84075; 84132; 84155; 84295; 84450; 84460; 84520; 85025

== ENCOUNTER 2018-09-22 02:56 | Emergency (ER) | payer OTHER, MEDICARE ==
[2017-01-05 17:19] VITALS: Wt 86.2 kg
[~2018-09-22 02:56] MED LIST changes: -LEVE500S9 PO; -LOR1 PO; -PROM473S4 PO
--- NOTE | 2018-09-22 03:00 | ER Report ---
History and Physical Time Seen By MD: 02:59 HPI/ROS CHIEF COMPLAINT: Altered mental status, fever HISTORY OF PRESENT ILLNESS: 63-year-old female with a history of stage IV lung cancer with metastasis brought in by EMS from home with altered mental status and agitation. She is febrile to the touch. EMS call was for a stroke with blood coming out of her mouth. Patient's unable to respond other than she's thrashing about. She appears grossly agitated. I suspect she is postictal from a seizure. 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 Patient finished dexamethasone taper yesterday. Per . Patient presents with blood around her mouth and crusting on her lips from biting her tongue during the seizure. Patient was incontinent of stool. EMS documented a blood sugar of 206 at home. A Seantz also been having a cough and been taking cough syrup with codeine in it. Patient was followed by Dr. Jensen oncology. REVIEW OF SYSTEMS: Respiratory: No cough, no dyspnea. Cardiovascular: No chest pain, no palpitations. Gastrointestinal: No vomiting, no abdominal pain. Musculoskeletal: No back pain. Allergies: Uncoded Allergies: CONTRAST DYE (Allergy, Intermediate, VOMITING/FEVER , 12/24/16) Home Meds Active Scripts Alectinib Hydrochloride (Alecensa) 150 Mg Capsule, 600 MG PO BID, #240 TAB Prov:JOYCE MEDLEY [employer]-BC, ONC 05/05/17 Reported Medications Promethazine HCl/Codeine (Promethazine-Codeine Syrup) 6.25 Mg-10 Mg/5 Ml Syrup, 5-10 ML PO Q4-6H for COUGH 09/22/18 Lorazepam (LORAZEPAM) 1 Mg Tab, 1 TAB PO QHS 09/22/18 Potassium Chloride (POTASSIUM CHLORIDE) 8 Meq Capsule.er, 8 MEQ PO QDAY 07/26/17 Cholecalciferol (Vitamin D3) (VITAMIN D3) 1,000 Unit Tablet, 1000 UNIT PO DAILY, TAB 04/28/17 Hydrochlorothiazide (HYDROCHLOROTHIAZIDE) 25 Mg Tablet, 1 TAB PO QDAY, TAB 08/18/16 Sitagliptin Phos/Metformin Hcl (JANUMET XR 100-1,000 MG TABLET) 1 Each Tbmp.24h r, 1 EACH PO QDAY 07/20/16 Past Medical/Surgical History ONCOLOGY HISTORY Metastatic lung adenocarcinoma, ALK rearrangement. 1. Initial presentation with one-year history of cough. 2. February 2016: Chest x-ray reveals suspicious mass. Subsequent CT scan of chest shows 2.3 x 2 x 1.6 cm mass with worrisome right hilar and mediastinal adenopathy. 3. February 27, 2016: Bronchoscopy is performed. Subcarinal lymph node with features consistent with lung adenocarcinoma. ALK rearrangement/positive immunohistochemistry noted. 4. March 04, 2016, CT/PET: Right lower lobe hypermetabolic nodule compatible with malignancy. Multiple hypermetabolic lymph nodes throughout the mediastinum, right hilum, and bilateral lower neck. 5. 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 Short-term followup was recommended. 6. March 27, 2016: Palliative crizotinib is started. 7. April 06, 2016: MRI lumbar spine shows suspicion for solitary metastatic lesion to L2. 8. May 2016: CT reveals mass in anterior right lobe is markedly decreased in size and measuring 2.3 x 2 x 1.6 cm. There was resolution of hilar and mediastinal adenopathy. There was internal development of a small pericardial effusion. 9. August 11, 2016: CT/PET scan shows ongoing evidence of treatment response. 10. September 08, 2016: MRI spine shows interval resolution of metastatic disease at L2. 11. Patient undergoes palliative radiation to right acetabulum and L2-L3. 12. Total hip arthroplasty completed in February 2017. 13. March 08, 2017, CT chest, abdomen, and pelvis: Stable 8 mm right lower lobe nodule, progression of bony metastatic disease in the pelvis involving bilateral iliac bones and left acetabulum. 14. February 2017 bone scan: Vaguely increased activity of right aspect of L4, increased from previous bone scan. New total hip on right. [place] uptake with possible increased activity of bony metastatic disease. 15. March 18, 2017, CT/PET: Evidence of progression of disease. 16. April 20, 2017: MRI left hip reveals large focus of metastatic disease involving the left iliac bone and involving the majority of the left acetabulum. Patient undergoes palliative radiation. 17. May 07, 2017: Alectinib is started. 18. August 03, 2017, MRI brain: New right frontal metastasis measuring 13 mm with surrounding edema, punctate 2 mm focus near edge of edema surrounding right frontal metastasis, left parietal metastasis measuring 7 mm, left cerebellar metastasis measuring 4 mm, and midline enhancement in brainstem that is stable from prior. 19. August 2017: Patient undergoes stereotactic radiation to brain metastases. 20. September 2017: Patient undergoes left total hip arthroplasty with fixation of a transverse acetabular fracture and tumor resection. 21. November 16, 2017: MRI brain shows slightly increased size of a 4 mm metastasis in the left pleural lobe, previously measuring 2 mm. The remainder of metastases have either decreased in size or are no longer seen. There are no new lesions. 22. November 22, 2017, CT/PET scan: All previously described hypermetabolic metastatic disease has resolved, but there is a new left subpectoral enlarged/hypermetabolic lymph node. 23. June 09, 2018. PET scan showed new hypermetabolic lesion to the sternum with a questionable focal hypermetabolic area to the left hilum, suspicious for new metastatic adenopathy, with no CT correlate. PAST MEDICAL HISTORY 1. Advanced non-small cell lung cancer, ALK positive. 2. Hypertension. 3. Type 2 diabetes. PAST SURGICAL HISTORY 1. Right total hip replacement. 2. Left hip reconstruction. 3. Left knee replacement. Reviewed Nurses Notes: Yes Old Medical Records Reviewed: Yes Hx Smoking: No Smoking Status: Never Smoker Exposure to Second Hand Smoke?: Yes Hx Substance Use Disorder: No Hx Alcohol Use: No Constitutional Vital Sign - Last 24 Hours 09/22/18 09/22/18 09/22/18 09/22/18 02:57 03:02 03:04 03:05 Temp 100.7 Pulse 116 116 117 Resp 24 21 45 B/P (MAP) 117/83 Pulse Ox 86 86 83 O2 Delivery Nasal Cannula O2 Flow Rate 3.0 09/22/18 09/22/18 09/22/18 09/22/18 03:06 03:08 03:10 03:12 Pulse 104 114 117 109 Resp 27 27 42 41 Pulse Ox 86 87 93 93 09/22/18 09/22/18 09/22/18 09/22/18 03:14 03:18 03:20 03:22 Pulse 97 100 103 Resp 20 34 32 B/P (MAP) 126/84 (98) Pulse Ox 95 95 95 96 09/22/18 09/22/18 09/22/18 09/22/18 03:24 03:26 03:28 03:30 Pulse 98 112 ??? 100 Resp 22 23 29 19 B/P (MAP) 130/78 (95) Pulse Ox 95 96 96 95 09/22/18 09/22/18 09/22/18 09/22/18 03:32 03:34 03:36 03:38 Pulse 103 106 114 111 Resp 19 ? Pulse Ox 95 96 96 95 09/22/18 09/22/18 09/22/18 09/22/18 03:40 03:42 03:44 03:46 Pulse 112 113 108 108 Resp ? B/P (MAP) ???/??? (1665) Pulse Ox 95 97 97 96 09/22/18 09/22/18 09/22/18 09/22/18 03:50 03:54 03:56 03:58 Pulse 100 107 102 109 Resp 23 26 25 15 B/P (MAP) 129/77 (94) Pulse Ox 96 89 90 90 09/22/18 09/22/18 09/22/18 09/22/18 04:00 04:02 04:04 04:06 Pulse 100 97 95 89 Resp 31 22 38 B/P (MAP) 130/81 (97) Pulse Ox 89 91 91 09/22/18 09/22/18 09/22/18 09/22/18 04:08 04:10 04:12 04:14 Pulse 89 87 86 85 Resp 23 21 18 22 Pulse Ox 92 93 93 93 09/22/18 09/22/18 09/22/18 09/22/18 04:18 04:20 04:22 04:24 Pulse 86 87 97 95 Resp 24 22 35 23 B/P (MAP) 111/80 (90) Pulse Ox 95 94 92 93 09/22/18 09/22/18 09/22/18 09/22/18 04:26 04:28 04:30 04:32 Pulse 101 95 94 93 Resp 30 24 19 20 Pulse Ox 93 91 93 91 09/22/18 09/22/18 09/22/18 09/22/18 04:34 04:36 04:38 04:40 Pulse 95 96 94 93 Resp 26 21 18 34 B/P (MAP) 127/113 (118) Pulse Ox 89 92 91 93 09/22/18 09/22/18 09/22/18 09/22/18 04:42 04:44 04:49 04:54 Pulse 94 86 76 80 Resp 20 22 36 22 Pulse Ox 89 91 92 93 09/22/18 09/22/18 09/22/18 09/22/18 04:59 05:04 05:09 05:14 Pulse 88 86 87 75 Resp 13 39 18 22 Pulse Ox 91 93 90 90 09/22/18 09/22/18 09/22/18 09/22/18 05:19 05:29 05:34 05:39 Pulse 74 70 71 80 Resp 19 23 22 16 Pulse Ox 90 92 91 90 09/22/18 09/22/18 09/22/18 09/22/18 05:44 05:49 05:54 05:59 Pulse 72 70 72 70 Resp 21 20 26 20 Pulse Ox 91 92 92 92 09/22/18 09/22/18 09/22/18 09/22/18 06:04 06:09 06:14 06:19 Pulse 70 70 71 71 Resp 20 20 20 21 Pulse Ox 92 92 92 91 09/22/18 09/22/18 09/22/18 09/22/18 06:24 06:29 06:34 06:36 Pulse 72 73 79 Resp 20 23 20 B/P (MAP) 144/86 (105) Pulse Ox 92 92 95 Intake and Output 09/21/18 09/21/18 09/22/18 15:00 23:00 07:00 Intake Total 1105 ml Output Total 10 ml Balance 1095 ml Physical Exam Vital signs stable, rectal temperature 100.7, pulse ox 90s on supplemental O2 General Appearance: The patient is alert, has no immediate need for airway protection and no current signs of toxicity. Patient appears combative and postictal. He has bite trejo to her tongue, which was suggestive seizure. HEENT: Pupils equal and round no injection. TMs normal, oropharynx with bite mayda to tongue., Blood encrusted on teeth. Respiratory: Chest is non tender, lungs are clear to auscultation. No wheezing or rails Cardiac: regular rate and rhythm Gastrointestinal: Abdomen is soft and non tender, no masses, bowel sounds normal. Musculoskeletal: Neck: Neck is supple and non tender. Extremities have full range of motion and are non tender. Skin: No rashes or lesions. Neuro: Combative and agitated movement of extremities 4. Consistent with postictal state. DIFFERENTIAL DIAGNOSIS: After history and physical exam differential diagnosis was considered for a seizure including but not limited to electrolyte abnormality, alcohol withdrawal, medication noncompliance, head injury, and breakthrough seizure. Medical Decision Making Data Points Result Diagram: 09/22/18 0427 09/22/18 0427 Laboratory Hematology Test 09/22/18 04:27 09/22/18 04:40 Red Blood Count 3.55 M/uL (4.17-5.56) Mean Corpuscular Volume 91.0 fL (80.0-96.0) Mean Corpuscular Hemoglobin 30.0 pg (26.0-33.0) Mean Corpuscular Hemoglobin Concent 33.0 g/dL (32.0-36.0) Red Cell Distribution Width 16.9 % (11.5-14.5) Mean Platelet Volume 7.1 fL (7.2-11.1) Neutrophils (%) (Auto) 81.0 % (39.4-72.5) Lymphocytes (%) (Auto) 9.5 % (17.6-49.6) Monocytes (%) (Auto) 8.0 % (4.1-12.4) Eosinophils (%) (Auto) 0.4 % (0.4-6.7) Basophils (%) (Auto) 1.1 % (0.3-1.4) Nucleated RBC Relative Count (auto) 0.4 /100WBC Neutrophils # (Auto) 5.2 K/uL (2.0-7.4) Lymphocytes # (Auto) 0.6 K/uL (1.3-3.6) Monocytes # (Auto) 0.5 K/uL (0.3-1.0) Eosinophils # (Auto) 0.0 K/uL (0.0-0.5) Basophils # (Auto) 0.1 K/uL (0.0-0.1) Nucleated RBC Absolute Count (auto) 0.02 K/uL Sodium Level 135 mmol/L (137-145) Potassium Level 3.4 mmol/L (3.5-5.0) Chloride Level 101 mmol/L (98-107) Carbon Dioxide Level 29 mmol/L (22-31) Blood Urea Nitrogen 17 mg/dl (7-18) Creatinine 0.90 mg/dl (0.52-1.04) Glomerular Filtration Rate Calc > 60.0 Random Glucose 267 mg/dl (75-110) Lactate 2.2 mmol/L (0.7-2.1) Calcium Level 8.2 mg/dl (8.4-10.2) Total Bilirubin 1.1 mg/dl (0.2-1.3) Aspartate Amino Transf (AST/SGOT) 14 U/L (0-35) Alanine Aminotransferase (ALT/SGPT) 24 U/L (0-56) Alkaline Phosphatase 169 U/L (0-126) Troponin I 0.176 ng/ml C-Reactive Protein 2.2 mg/dl (<1.0) Total Protein 5.5 g/dl (6.3-8.2) Albumin 3.1 g/dl (3.5-5.0) Urine Color Yellow Urine Clarity Clear Urine pH 5.0 pH (4.8-9.5) Urine Specific [place] 1.025 Urine Protein Negative mg/dL (NEGATIVE) Urine Glucose (UA) 500 mg/dL (NEGATIVE) Urine Ketones Negative mg/dL (NEGATIVE) Urine Blood Negative (NEGATIVE) Urine Nitrite Negative (NEGATIVE) Urine Bilirubin Negative (NEGATIVE) Urine Urobilinogen Negative mg/dL (0.2-1.9) Urine Leukocyte Esterase Negative (NEGATIVE) Urine RBC <1 /HPF (0-2/HPF) Urine WBC <1 /HPF (0-5/HPF) Urine Squamous Epithelial Cells Many /LPF (NONE-FEW) Urine Bacteria Negative /HPF (NONE-FEW) Urine Hyaline Casts Few /LPF (NONE-FEW) Urine Mucus None /HPF (NONE-FEW) Chemistry Test 09/22/18 04:27 09/22/18 04:40 White Blood Count 6.4 k/uL (4.5-11.0) Red Blood Count 3.55 M/uL (4.17-5.56) Hemoglobin 10.6 g/dL (12.0-16.0) Hematocrit 32.3 % (34.0-47.0) Mean Corpuscular Volume 91.0 fL (80.0-96.0) Mean Corpuscular Hemoglobin 30.0 pg (26.0-33.0) Mean Corpuscular Hemoglobin Concent 33.0 g/dL (32.0-36.0) Red Cell Distribution Width 16.9 % (11.5-14.5) Platelet Count 235 K/uL (150-450) Mean Platelet Volume 7.1 fL (7.2-11.1) Neutrophils (%) (Auto) 81.0 % (39.4-72.5) Lymphocytes (%) (Auto) 9.5 % (17.6-49.6) Monocytes (%) (Auto) 8.0 % (4.1-12.4) Eosinophils (%) (Auto) 0.4 % (0.4-6.7) Basophils (%) (Auto) 1.1 % (0.3-1.4) Nucleated RBC Relative Count (auto) 0.4 /100WBC Neutrophils # (Auto) 5.2 K/uL (2.0-7.4) Lymphocytes # (Auto) 0.6 K/uL (1.3-3.6) Monocytes # (Auto) 0.5 K/uL (0.3-1.0) Eosinophils # (Auto) 0.0 K/uL (0.0-0.5) Basophils # (Auto) 0.1 K/uL (0.0-0.1) Nucleated RBC Absolute Count (auto) 0.02 K/uL Glomerular Filtration Rate Calc > 60.0 Lactate 2.2 mmol/L (0.7-2.1) Calcium Level 8.2 mg/dl (8.4-10.2) Total Bilirubin 1.1 mg/dl (0.2-1.3) Aspartate Amino Transf (AST/SGOT) 14 U/L (0-35) Alanine Aminotransferase (ALT/SGPT) 24 U/L (0-56) Alkaline Phosphatase 169 U/L (0-126) Troponin I 0.176 ng/ml C-Reactive Protein 2.2 mg/dl (<1.0) Total Protein 5.5 g/dl (6.3-8.2) Albumin 3.1 g/dl (3.5-5.0) Urine Color Yellow Urine Clarity Clear Urine pH 5.0 pH (4.8-9.5) Urine Specific [place] 1.025 Urine Protein Negative mg/dL (NEGATIVE) Urine Glucose (UA) 500 mg/dL (NEGATIVE) Urine Ketones Negative mg/dL (NEGATIVE) Urine Blood Negative (NEGATIVE) Urine Nitrite Negative (NEGATIVE) Urine Bilirubin Negative (NEGATIVE) Urine Urobilinogen Negative mg/dL (0.2-1.9) Urine Leukocyte Esterase Negative (NEGATIVE) Urine RBC <1 /HPF (0-2/HPF) Urine WBC <1 /HPF (0-5/HPF) Urine Squamous Epithelial Cells Many /LPF (NONE-FEW) Urine Bacteria Negative /HPF (NONE-FEW) Urine Hyaline Casts Few /LPF (NONE-FEW) Urine Mucus None /HPF (NONE-FEW) Urinalysis Test 09/22/18 04:40 Urine Color Yellow Urine Clarity Clear Urine pH 5.0 pH (4.8-9.5) Urine Specific [place] 1.025 Urine Protein Negative mg/dL (NEGATIVE) Urine Glucose (UA) 500 mg/dL (NEGATIVE) Urine Ketones Negative mg/dL (NEGATIVE) Urine Blood Negative (NEGATIVE) Urine Nitrite Negative (NEGATIVE) Urine Bilirubin Negative (NEGATIVE) Urine Urobilinogen Negative mg/dL (0.2-1.9) Urine Leukocyte Esterase Negative (NEGATIVE) Urine RBC <1 /HPF (0-2/HPF) Urine WBC <1 /HPF (0-5/HPF) Urine Squamous Epithelial Cells Many /LPF (NONE-FEW) Urine Bacteria Negative /HPF (NONE-FEW) Urine Hyaline Casts Few /LPF (NONE-FEW) Urine Mucus None /HPF (NONE-FEW) Microbiology Microbiology Date/Time Source Procedure Growth Status 09/22/18 04:27 Blood Peripheral Draw Blood Culture - Preliminary NO GROWTH SO FAR, SET LATE. REINCUBATED Resulted 09/22/18 03:00 Blood Peripheral Draw Blood Culture - Preliminary NO GROWTH SO FAR, SET LATE. REINCUBATED Resulted EKG/Imaging EKG Interpretation 12 lead EK Rhythm: normal sinus rhythm [place]: normal QRS: normal, low voltage QRS ST segments: normal, comparison to previous EKG 09/15/17, no significant morphologic change Imaging X-ray: Single view portable chest x-ray was obtained. I viewed the images myself on the PACS system. My interpretation of the images is: There is a large pleural effusion or mass in the left chest compared to previous chest x-ray dated 04/26/16. There is also mass in the mediastinum. The radiologist interpretation had no clinically significant variation from this interpretation. Results: CT scan of the head without contrast was obtained. The results of the study are EXAMINATION: CT Head Without Contrast 09/22/2018 3:02 AM HISTORY: FEVER TECHNIQUE: Contiguous axial images were obtained from the skull base to the vertex without intravenous contrast. One of the following dose optimization techniques was utilized in the performance of this exam: Automated exposure control; adjustment of the mA and/or kV according to the patient's size; or use of an iterative reconstruction technique. Specific details can be referenced in the facility's radiology CT exam operational policy. COMPARISON STUDIES: PET/CT from [facility] 09/08/2018 with MR brain 08/23/2018 from Open MRI of [facility]. FINDINGS: Ventricles / sulci / fissures: negative Masses / hemorrhage / midline shift: Rounded 1.2 cm mass in the superolateral right frontal lobe with surrounding vasogenic edema. Pleural pattern is fairly similar to the MRI. Smaller enhancing foci shown by the MRI are not as well demonstrated by CT. No acute stroke or hemorrhage evident. White matter: negative Bella-white differentiation: negative Extra-axial spaces: negative Dural venous sinuses / arterial structures: negative Skull base / calvarium: Scattered lytic lesions in the skull consistent with metastases. Visualized mastoid air cells / paranasal sinuses: negative IMPRESSION: 1. Metastatic disease with a right frontal mass and surrounding vasogenic edema. Bony metastases in the skull are also present. 2. No acute stroke or hemorrhage evident. The study was read by the radiologist. I viewed the images myself on the PACS system. ED Course/Re-evaluation Clinical Indication for ER IV: IV Access ED Course Patient was admitted to an examination room. H&P was done. The differential diagnoses was considered. Patient agitated and combative. Patient has tongue bite trejo. She has brain metastasis noted in her medical records. I suspect she had a seizure. Her states she just finished Decadron yesterday at taper for brain swelling. She's been receiving radiation therapy to a right frontal metastasis. EMS checked her blood sugar at 206 at home. Patient had a 2nd seizure here shortly thereafter. She was rolled on her side. Supplemental O2 was applied. Ativan 2 mg was administered through an IV in the right arm. Patient continued to be agitated and combative. 2nd dose of Ativan 2 mg was administered so that the CAT scan to be performed. Keppra 500 mg was administered IV. Prior to transfer. Patient was more alert and conversing with us appropriately. Her mentation was normal. She was alert and oriented 3. 09/22/2018 5:02:10 am call from lab with critical troponin is elevated above ischemic level 0.176 09/22/2018 5:30:22 am case was discussed with Dr. Olivia hospitalist at [facility] who accepts the patient for transfer to her facility. 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
[2018-09-22] MEDS ORDERED: NS(*) 0.9% 1000 ML BAG 1,000 ML IV ONE (03:02)
[2018-09-22] MEDS ORDERED: ACETAMINOPHEN 650 MG SUPP PR ONE (03:05)
[2018-09-22] MEDS ORDERED: LORazepam 2 MG/ML VIAL ONE ×2 (03:09→03:36)
[2018-09-22] MEDS ORDERED: LORazepam 2 MG/ML VIAL IVP ONE ×2 (03:10→03:40)
[2018-09-22] MEDS ORDERED: levETIRAcetam 500 MG/5 ML VIAL IV ONE (03:25)
[2018-09-22] MEDS ORDERED: levETIRAcetam(*)500 MG/5 ML VI 500 MG in NS(*) 0.9% 100 ML BAG 100 ML IVPB ONE (03:25)
[2018-09-22] MEDS ORDERED: LOR1 PO (04:11)
[2018-09-22] MEDS ORDERED: PROM473S4 PO (04:11)
--- NOTE | 2018-09-22 04:14 | RADIOLOGY IMAGING REPORT ---
FACILITY: [facility] [place] PATIENT NAME: Zee Stoddard : 1955 MR: [id number] V: [id number] EXAM DATE: ORDERING PHYSICIAN: ADIEL MIRANDA TECHNOLOGIST: [facility] Patient: Zee Stoddard : 1955 Visit/Account:[id number] Date of Sevice: 09/22/2018 EXAMINATION: CT Head Without Contrast 09/22/2018 3:02 AM HISTORY: FEVER TECHNIQUE: Contiguous axial images were obtained from the skull base to the vertex without intraven ous contrast. One of the following dose optimization techniques was utilized in the performance of this exam: Autom ated exposure control; adjustment of the mA and/or kV according to the patient's size; or use of an i terative reconstruction technique. Specific details can be referenced in the facility's radiology C T exam operational policy. COMPARISON STUDIES: PET/CT from [facility] 09/08/2018 with MR brain 08/23/2018 fr om Open MRI of the [facility]. FINDINGS: Ventricles / sulci / fissures: negative Masses / hemorrhage / midline shift: Rounded 1.2 cm mass in the superolateral right frontal lobe with surrounding vasogenic edema. Pleural pattern is fairly similar to the MRI. Smaller enhancing foci sh own by the MRI are not as well demonstrated by CT. No acute stroke or hemorrhage evident. White matter: negative Bella-white differentiation: negative Extra-axial spaces: negative Dural venous sinuses / arterial structures: negative Skull base / calvarium: Scattered lytic lesions in the skull consistent with metastases. Visualized mastoid air cells / paranasal sinuses: negative IMPRESSION: 1. Metastatic disease with a right frontal mass and surrounding vasogenic edema. Bony metastases in t he skull are also present. 2. No acute stroke or hemorrhage evident. Report Dictated By: Vini Michel MD at 09/22/2018 4:01 AM Report E-Signed By: Vini Michel MD at 09/22/2018 4:10 AM WSN:[id number]
--- NOTE | 2018-09-22 04:15 | RADIOLOGY IMAGING REPORT ---
FACILITY: [facility] PATIENT NAME: Zee Stoddard : 1955 MR: [id number] V: [id number] EXAM DATE: ORDERING PHYSICIAN: ADIEL MIRANDA TECHNOLOGIST: [facility] Patient: Zee Stoddard : 1955 Visit/Account:[id number] Date of Sevice: 09/22/2018 EXAMINATION: Portable AP Chest 09/22/2018 3:02 AM HISTORY: FEVER COMPARISON: CT 09/18/2017 FINDINGS: Cardiomediastinal contours: Cardiomegaly. Aorta is atherosclerotic. Lungs and pleura: Vasculature is indistinct. Likely left effusion. No definite effusion on the right. Bones/soft tissues: No acute bony finding. IMPRESSION: Cardiac megaly with vascular engorgement and likely left effusion consistent with borderl ine to mild CHF. Infiltrate in the left base cannot be excluded. Report Dictated By: Vini Michel MD at 09/22/2018 4:10 AM Report E-Signed By: Vini Michel MD at 09/22/2018 4:12 AM [id number]
--- NOTE | 2018-09-22 04:29 | EKG ---
FACILITY: [facility] [place] PATIENT NAME: RITESH LINK : [id number] MR: [id number] V: [id number] EXAM DATE: ORDERING PHYSICIAN: ADIEL MIRANDA TECHNOLOGIST: WANG Test Reason : SEIZURE Blood Pressure : / mmHG Vent. Rate : 094 BPM Atrial Rate : 094 BPM P-R Int : 200 ms QRS Dur : 086 ms QT Int : 346 ms P-R-T Axes : 057 063 018 degrees QTc Int : 432 ms Normal sinus rhythm Low voltage QRS Borderline ECG When compared with ECG of 15-SEP-2017 09:02, Criteria for Anterior infarct are no longer present Confirmed by JOSEPH FONTANEZ ([id number]) on 09/22/2018 6:19:05 AM Referred By: Confirmed By:JOSEPH FONTANEZ
[2018-09-22] MEDS ORDERED: DEXAMETHASONE SOD PHOS 10MG/ML IVP ONE (04:45)
[2018-09-22 04:54] LABS: PLATELET COUNT, AUTOMATED 235 K/uL (150-450)
[2018-09-22 06:36] VITALS: BP 144/86
== END 2018-09-22 06:54 | disposition short-term general hospital (02) ==
LOC: ER 03:02
DX: G40.409 Other generalized epilepsy and epileptic syndromes, not intractable, without status epilepticus (principal); C79.31 Secondary malignant neoplasm of brain; C34.90 Malignant neoplasm of unspecified part of unspecified bronchus or lung; R79.89 Other specified abnormal findings of blood chemistry
CPT/HCPCS: 36415; 70450; 71045; 81001; 83605; 84484; 85025; 86140; 87040; 93005; 96361; 96365; 96375; 96376; 99285; A4353; J1100; J1953; J2060; J7030; J7050; 82040; 82247; 82310; 82374; 82435; 82565; 82947; 84075; 84132; 84155; 84295; 84450; 84460; 84520; C1758

== ENCOUNTER → 2018-09-22 | Outpatient (CLI) | payer OTHER, MEDICARE ==
[2017-01-05 17:19] VITALS: BMI 38.1
[~2018-09-22] MED LIST changes: +LEVE500S9 PO; +LOR1 PO; +PROM473S4 PO
== END ==
LOC: AMB 06:36
PROVIDERS: ATTEND Nurse Practitioner
DX: R56.9 Unspecified convulsions (principal); R79.89 Other specified abnormal findings of blood chemistry; R09.02 Hypoxemia
CPT/HCPCS: A0425; A0426; A0888

== ENCOUNTER → 2018-09-22 | Outpatient (CLI) | payer OTHER, MEDICARE ==
[2017-01-05 17:19] VITALS: BMI 38.1
== END ==
LOC: AMB 02:38
PROVIDERS: ATTEND Nurse Practitioner
DX: R41.82 Altered mental status, unspecified (principal); A41.9 Sepsis, unspecified organism; R56.00 Simple febrile convulsions; R06.82 Tachypnea, not elsewhere classified
CPT/HCPCS: A0425; A0427

== ENCOUNTER 2018-11-23 15:58 | Outpatient (RCR) | payer OTHER, MEDICARE ==
[2017-01-05 17:19] VITALS: Wt 117.5 kg
[2018-09-19 08:55] VITALS: BP 145/70
[2018-09-19 09:07] LABS: PLATELET COUNT, AUTOMATED 284 K/uL (150-450)
[2018-09-28 16:35] VITALS: BP 157/97
--- NOTE | 2018-10-05 13:23 | ONCOLOGY FOLLOW UP NOTE ---
EVENT DATE: September 28, 2018 REASON FOR FOLLOWUP Metastatic lung adenocarcinoma, ALK rearrangement. INTERIM HISTORY Zee returns to clinic for a followup visit today. She is accompanied by her . Since our last visit, she has continued on palliative alectinib. She had been doing fairly well until a little more than a week ago. Her had found her altered and agitated and he had initial concern for a stroke. He had also noticed blood in her mouth as well as thrashing, raising concern for a seizure. She was taken to the [facility] emergency room, where she had another generalized seizure. She was transferred to [facility]. She had received Ativan and she was started on Keppra and dexamethasone. Seizure activity abated. She went for an MRI of the brain on September 22, 2018, and although there was significant motion artifact, there was no appreciable change in the metastatic lesions seen previously or in the surrounding edema. She was subsequently discharged to home. Since that time, she has been understandably tired. She reports no new pain but she does have ongoing arthralgias. She reports no fever. She is in a wheelchair today. She and her are here to discuss further management of her lung cancer. ONCOLOGY HISTORY Metastatic lung adenocarcinoma, ALK rearrangement. 1. Initial presentation with one-year history of cough. 2. February 2016: Chest x-ray reveals suspicious mass. Subsequent CT scan of chest shows 2.3 x 2 x 1.6 cm mass with worrisome right hilar and mediastinal adenopathy. 3. February 27, 2016: Bronchoscopy is performed. Subcarinal lymph node with features consistent with lung adenocarcinoma. ALK rearrangement/positive immunohistochemistry noted. 4. March 04, 2016, CT/PET: Right lower lobe hypermetabolic nodule compatible with malignancy. Multiple hypermetabolic lymph nodes throughout the mediastinum, right hilum, and bilateral lower neck. 5. 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 Short-term followup was recommended. 6. March 27, 2016: Palliative crizotinib is started. 7. April 06, 2016: MRI lumbar spine shows suspicion for solitary metastatic lesion to L2. 8. May 2016: CT reveals mass in anterior right lobe is markedly decreased in size and measuring 2.3 x 2 x 1.6 cm. There was resolution of hilar and mediastinal adenopathy. There was internal development of a small pericardial effusion. 9. August 11, 2016: CT/PET scan shows ongoing evidence of treatment response. 10. September 08, 2016: MRI spine shows interval resolution of metastatic disease at L2. 11. Patient undergoes palliative radiation to right acetabulum and L2-L3. 12. Total hip arthroplasty completed in February 2017. 13. March 08, 2017, CT chest, abdomen, and pelvis: Stable 8 mm right lower lobe nodule, progression of bony metastatic disease in the pelvis involving bilateral iliac bones and left acetabulum. 14. February 2017 bone scan: Vaguely increased activity of right aspect of L4, increased from previous bone scan. New total hip on right. [place] uptake with possible increased activity of bony metastatic disease. 15. March 18, 2017, CT/PET: Evidence of progression of disease. 16. April 20, 2017: MRI left hip reveals large focus of metastatic disease involving the left iliac bone and involving the majority of the left acetabulum. Patient undergoes palliative radiation. 17. May 07, 2017: Alectinib is started. 18. August 03, 2017, MRI brain: New right frontal metastasis measuring 13 mm with surrounding edema, punctate 2 mm focus near edge of edema surrounding right frontal metastasis, left parietal metastasis measuring 7 mm, left cerebellar metastasis measuring 4 mm, and midline enhancement in brainstem that is stable from prior. 19. August 2017: Patient undergoes stereotactic radiation to brain metastases. 20. September 2017: Patient undergoes left total hip arthroplasty with fixation of a transverse acetabular fracture and tumor resection. 21. November 16, 2017: MRI brain shows slightly increased size of a 4 mm metastasis in the left pleural lobe, previously measuring 2 mm. The remainder of metastases have either decreased in size or are no longer seen. There are no new lesions. 22. November 22, 2017, CT/PET scan: All previously described hypermetabolic metastatic disease has resolved, but there is a new left subpectoral enlarged/hypermetabolic lymph node. 23. June 09, 2018. PET scan showed new hypermetabolic lesion to the sternum with a questionable focal hypermetabolic area to the left hilum, suspicious for new metastatic adenopathy, with no CT correlate. 24. September 08, 2018: PET CT reveals no evidence of progressing disease outside of the brain. There was decreasing activity and sternal metastasis compared to the June PET CT. 25. September 22, 2018: MRI brain: Patient motion; no appreciable change in metastatic lesions or of the surrounding edema compared to prior study. No new lesions. PAST MEDICAL HISTORY 1. Advanced non-small cell lung cancer, ALK positive. 2. Hypertension. 3. Type 2 diabetes. PAST SURGICAL HISTORY 1. Right total hip replacement. 2. Left hip reconstruction. 3. Left knee replacement. FAMILY HISTORY History of breast cancer in her mother and melanoma in her father. SOCIAL HISTORY Patient is . They have two grown children. 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 She is a never smoker. She does not drink alcohol or use illicit drugs. CURRENT MEDICATIONS 1. Alectinib 600 mg b.i.d. 2. Potassium. 3. Vitamin D3. 4. Hydrochlorothiazide 25 mg. 5. Janumet XR. 6. Aspirin 81 mg daily. 7. Keppra 500 mg p.o. b.i.d. ALLERGIES No known drug allergies. ALLERGIC to IV CONTRAST. VITAL SIGNS Patient is afebrile. Blood pressure 157/97, heart rate 63, respirations 16, oxygen saturation 95% on room air. PHYSICAL EXAMINATION GENERAL: Patient is alert and oriented x3, no apparent distress, sitting in a wheelchair. She appears somewhat more edematous today. She is interactive and pleasant but appears tired. HEENT: Anicteric sclerae. NEUROLOGIC: Grossly nonfocal but she does have some generalized weakness. EXTREMITIES: Some edema of the bilateral lower extremities but no erythema or tenderness. SKIN: No concerning rash or lesion. LABORATORY STUDIES Reviewed per the [facility] record. IMAGING Please see above. ASSESSMENT AND PLAN Stage IV lung adenocarcinoma, ALK rearrangement, brain metastases, recent seizure activity. I had a good visit with Dahiana and her today. We spent time reviewing recent events with seizure activity, emergency room presentation and transfer to the [facility] for hospitalization. We also discussed the results of her inpatient MRI of the brain. Although there was some motion artifact on this study, findings appear stable compared to prior. As discussed, I do want to have her situation discussed at our upcoming brain and spine multidisciplinary conference at the [facility]. We moved on to discuss the use of Keppra and I have recommended no dosing changes for the time being. We discussed that her most recent CT PET scan had shown no evidence of hypermetabolic metastatic disease. This is encouraging. We discussed ongoing use of Alectinib versus potential change to different systemic therapy given concern for recent seizure activity, although her MRI of the brain shows what appears to be stable findings. It is difficult to recommend a change in her palliative systemic therapy given current findings but we discussed potential future treatment options today. She had seen Dr. Funez at the [facility] in April 2017. We discussed the merits of a visit there to further discuss options, or potentially clinical trial eligibility for the future. She expresses interest and we will make this referral back to see Dr. Funez. As discussed, I would like to see her back for followup after this visit and after her case is reviewed at the upcoming Tumor Board at the [facility]. The patient and her had several additional questions for me today and I believe I answered all of their questions to their satisfaction. I spent a total of 30 minutes of time face to face with the patient and her today and 25 minutes of this was spent in direct counseling and coordination of care. HANK
[~2018-11-23 15:58] MED LIST changes: +LEVE500S9 PO; +LOR1 PO; +PROM473S4 PO
[2018-11-23 16:06] VITALS: BP 135/74
[2018-11-23] MEDS ORDERED: ASPI81TA94 PO (16:08)
--- NOTE | 2018-11-29 15:35 | ONCOLOGY FOLLOW UP NOTE ---
EVENT DATE: November 23, 2018 REASON FOR FOLLOWUP Metastatic lung adenocarcinoma, ALK rearrangement. INTERIM HISTORY Dahiana returns to clinic for a followup visit today. She is accompanied by her . She reports that generally she has been feeling quite a bit better. On October 30, she underwent right frontal craniotomy with resection of tumor. We discussed that final pathology was consistent with metastatic lung adenocarcinoma as opposed to radiation necrosis. Dahiana reports no new pain today. She denies fever. She continues to be pretty tired. She has had no recent seizure activity. She reports no new shortness of breath, chest pain, or productive cough. She has questions about the plan moving forward. REVIEW OF SYSTEMS Otherwise negative, and all systems were reviewed. ONCOLOGY HISTORY Metastatic lung adenocarcinoma, ALK rearrangement. 1. Initial presentation with one-year history of cough. 2. February 2016: Chest x-ray reveals suspicious mass. Subsequent CT scan of chest shows 2.3 x 2 x 1.6 cm mass with worrisome right hilar and mediastinal adenopathy. 3. February 27, 2016: Bronchoscopy is performed. Subcarinal lymph node with features consistent with lung adenocarcinoma. ALK rearrangement/positive immunohistochemistry noted. 4. March 04, 2016, CT/PET: Right lower lobe hypermetabolic nodule compatible with malignancy. Multiple hypermetabolic lymph nodes throughout the mediastinum, right hilum, and bilateral lower neck. 5. 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 Short-term followup was recommended. 6. March 27, 2016: Palliative crizotinib is started. 7. April 06, 2016: MRI lumbar spine shows suspicion for solitary metastatic lesion to L2. 8. May 2016: CT reveals mass in anterior right lobe is markedly decreased in size and measuring 2.3 x 2 x 1.6 cm. There was resolution of hilar and mediastinal adenopathy. There was internal development of a small pericardial effusion. 9. August 11, 2016: CT/PET scan shows ongoing evidence of treatment response. 10. September 08, 2016: MRI spine shows interval resolution of metastatic disease at L2. 11. Patient undergoes palliative radiation to right acetabulum and L2-L3. 12. Total hip arthroplasty completed in February 2017. 13. March 08, 2017, CT chest, abdomen, and pelvis: Stable 8 mm right lower lobe nodule, progression of bony metastatic disease in the pelvis involving bilateral iliac bones and left acetabulum. 14. February 2017 bone scan: Vaguely increased activity of right aspect of L4, increased from previous bone scan. New total hip on right. [place] uptake with possible increased activity of bony metastatic disease. 15. March 18, 2017, CT/PET: Evidence of progression of disease. 16. April 20, 2017: MRI left hip reveals large focus of metastatic disease involving the left iliac bone and involving the majority of the left acetabulum. Patient undergoes palliative radiation. 17. May 07, 2017: Alectinib is started. 18. August 03, 2017, MRI brain: New right frontal metastasis measuring 13 mm with surrounding edema, punctate 2 mm focus near edge of edema surrounding right frontal metastasis, left parietal metastasis measuring 7 mm, left cerebellar metastasis measuring 4 mm, and midline enhancement in brainstem that is stable from prior. 19. August 2017: Patient undergoes stereotactic radiation to brain metastases. 20. September 2017: Patient undergoes left total hip arthroplasty with fixation of a transverse acetabular fracture and tumor resection. 21. November 16, 2017: MRI brain shows slightly increased size of a 4 mm metastasis in the left pleural lobe, previously measuring 2 mm. The remainder of metastases have either decreased in size or are no longer seen. There are no new lesions. 22. November 22, 2017, CT/PET scan: All previously described hypermetabolic metastatic disease has resolved, but there is a new left subpectoral enlarged/hypermetabolic lymph node. 23. June 09, 2018. PET scan showed new hypermetabolic lesion to the sternum with a questionable focal hypermetabolic area to the left hilum, suspicious for new metastatic adenopathy with no CT correlate. 24. September 08, 2018: PET CT reveals no evidence of progressing disease outside of the brain. There was decreasing activity and sternal metastasis compared to the June PET/CT. 25. September 22, 2018, MRI brain: Patient motion; no appreciable change in metastatic lesions or of the surrounding edema compared to prior study. No new lesions. 26. October 30, 2018: Right frontal craniotomy with gross resection of tumor. Surgical pathology consistent with metastatic lung adenocarcinoma. PAST MEDICAL HISTORY 1. Advanced non-small cell lung cancer, ALK positive. 2. Hypertension. 3. Type 2 diabetes. PAST SURGICAL HISTORY 1. Right total hip replacement. 2. Left hip reconstruction. 3. Left knee replacement. 4. Right frontal craniotomy. FAMILY HISTORY History of breast cancer in her mother and melanoma in her father. SOCIAL HISTORY Patient is . They have two grown children. 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 She is a never smoker. She does not drink alcohol or use illicit drugs. CURRENT MEDICATIONS 1. Alectinib 600 mg b.i.d. 2. Potassium. 3. Vitamin D3. 4. Hydrochlorothiazide 25 mg. 5. Janumet XR. 6. Aspirin 81 mg daily. 7. Keppra 500 mg p.o. b.i.d. ALLERGIES No known drug allergies. Allergic to IV CONTRAST. VITAL SIGNS Temperature is 97.4, blood pressure 135/74, heart rate is 74, respirations 18, oxygen saturation is 97% on room air. PHYSICAL EXAMINATION GENERAL: Patient is alert and oriented times three, in no apparent distress, sitting in the exam room chair. HEENT: Anicteric sclerae. NEUROLOGIC: Grossly nonfocal, though I did not test her gait today. EXTREMITIES: Some edema of the bilateral lower extremities, without erythema or tenderness to palpation. SKIN: No concerning rash or lesion. LABORATORY STUDIES Reviewed per the [facility] record. IMAGING AND PATHOLOGY Please see Oncology History. ASSESSMENT AND PLAN Metastatic lung adenocarcinoma. I had a good visit with Dahiana and her today. She does seem to be recovering nicely from her recent metastasis resection from the right frontal lobe. We discussed physical therapy and expectations for further improvement in function. We moved on to discuss the plan moving forward for reevaluation of her disease. She does have a followup MRI of the brain scheduled for mid December. This will be done in [place]. We discussed that her most recent CT/PET scan had been performed in early September. Mid December would certainly be reasonable time to reassess the status of her systemic disease. We moved forward to discuss potential future options in that regard. If she appears to have stable disease, we certainly can have her continue with alectinib. If there is evidence of limited progression, we can consider focal radiation therapy as we have done in the past. If there is more significant progression of her lung cancer, lorlatinib would represent a very good option for her. Dahiana had several additional questions for me today, and I believe I answered all of her questions to her satisfaction. I will plan to see her back for followup, hopefully in [place] on the same day as imaging studies. All questions answered today. MTDD
== END 2018-12-17 ==
LOC: ONC 15:58
PROVIDERS: ATTEND Internal Medicine Medical Oncology
DX: C34.31 Malignant neoplasm of lower lobe, right bronchus or lung (principal); C79.31 Secondary malignant neoplasm of brain; C79.51 Secondary malignant neoplasm of bone; R60.0 Localized edema
CPT/HCPCS: 36415; 82040; 82247; 82310; 82374; 82435; 82565; 82947; 84075; 84132; 84155; 84295; 84450; 84460; 84520; 85025; 99212